=== PATIENT | female | born 1960 | race Asian ===

== ENCOUNTER → 2018-06-08 06:59 | Outpatient (CLI) | payer OTHER, SELFPAY ==
[2018-06-08 08:20] LABS: Add Manual Diff / Slide Review NO; Basophils Percent Auto 0.6 % (0-2); Eosinophils Percent Auto 2.4 % (2-4); Hematocrit 43.4 % (36-46); Hemoglobin 14.8 g/dL (12.0-16.0); Lymphocytes Percent Auto 27.6 % (25-40); Mean Corpuscular HGB Conc 34.1 % (30-36); Mean Corpuscular Hemoglobin 30.7 PG (26-34); Mean Corpuscular Volume 89.9 fL (80-100); Monocytes Percent Auto 7.8 % (3-14); Neutrophils Absolute Auto 3600 /uL (3000-5900); Neutrophils Percent Auto 61.6 % (50-75); Platelet Count 251 X10^3/uL (150-400); Red Blood Cell Count 4.83 X10^6/uL (4.0-5.2); Red Cell Distribution Width 13.3 % (11.6-14.8); White Blood Cell Count 5.8 X10^3/uL (4.5-11.0)
[2018-06-08 08:53] LABS: Alanine Aminotransferase 25 IU/L (9-52); Albumin 4.5 g/dL (3.5-5.0); Albumin Globulin Ratio 1.3 (1.0-2.8); Alkaline Phosphatase 59 U/L (38-126); Aspartate Aminotransferase 26 IU/L (14-36); Bilirubin Total 0.6 mg/dL (0.2-1.3); Blood Urea Nitrogen 24 mg/dL (7-17); Carbon Dioxide 26 mmol/L (22-32); Chloride 104 mmol/L (98-107); Cholesterol 293 mg/dL (140-199); Estimated Glomerular Filt Rate > 60.0 mL/min (>60); Globulin 3.4 g/dL (1.7-4.1); Glucose 146 mg/dL (70-100); HDL Cholesterol 39 mg/dL (40-60); LDL Cholesterol Calculated 186 mg/dL (<100); Sodium 141 mmol/L (137-145); Total Protein 7.9 g/dL (6.3-8.2); Triglycerides 340 mg/dL (35-150)
[2018-06-08 09:22] LABS: TSH w/ Reflex to FT4 2.65 uIU/mL (0.47-4.68)
[2018-06-08 09:26] LABS: HEMOLYSIS 68 (0-50)
[2018-06-08 09:29] LABS: Potassium 4.5 mmol/L (3.4-5.1)
== END ==
DX: Z00.00 Encounter for general adult medical examination without abnormal findings (principal); Z13.220 Encounter for screening for lipoid disorders; Z13.1 Encounter for screening for diabetes mellitus; E03.9 Hypothyroidism, unspecified
CPT/HCPCS: 36415; 80053; 80061; 83036; 84443; 85025

== ENCOUNTER 2018-06-29 11:15 | Inpatient (IN) | payer OTHER, SELFPAY ==
[2018-06-29] VITALS (16 sets, daily range): BP systolic 90–166; BP diastolic 36–111; PULSE 90–108; RESP 12–20; TEMP 35.9–37.4; O2SAT 91–99; BMI 29.7; BMI 32.4
--- NOTE | 2018-06-29 | PATH_ITS ---
[facility] Accession Number: [id number] . 01 Material submitted: . APPENDIX . 02 Diagnosis: Appendix, Appendectomy: Acute appendicitis with perforation and serositis. No evidence of dysplasia or malignancy. [facility]/07/03/2018 . 02 Electronically signed: . Constance Vásquez MD, Pathologist NPI- [id number] . 01 Gross description: . Received in formalin, labeled appendix, is an opened appendix (length-2.7 cm, diameter-0.8 cm) with miller-gallego smooth and shiny serosa and attached mesoappendix (up to 1.1 cm in depth). The resection margin is received stapled. The lumen contains red-brown solid soft material. No nodules, masses or lesions are identified. The resection margin is inked black. Section code: (A1) resection margin en face and three additional quality audit representative serial sections; (A2) one-half of the bivalved tip. ([id number]) /[facility] . 02 Pathologist provided ICD-10: K35.20 . 02 CPT . 787997 Performed at: [facility] [address] [id number] MD Randall Middleton MD Phone: [phone] Performed at: [facility] [address] [place], [place] [id number] MD Constance Vásquez MD Phone: [phone]
--- NOTE | 2018-06-29 11:44 | ED_ITS ---
HPI - Abdominal Pain <AYESHA Johnson - Last Filed: 06/29/18 20:59> General Chief Complaint: Abdominal Pain Stated Complaint: stomach ache Time Seen by Provider: 06/29/18 11:43 Source: patient Mode of arrival: ambulatory Limitations: no limitations History of Present Illness HPI narrative: 58-year-old female with history of hypothyroidism and is a nonsmoker here for complaint of abdominal pain and nausea vomiting that started yesterday. She states that the pain started yesterday in the epigastric area and then throughout the night moved into the lower abdomen. Pain is greater on right than the left. She denies any urinary symptoms. No fevers no chills. She does report decreased appetite today. Last p.o. intake was yesterday. Last bowel movement was yesterday and she states that it was normal. She denies any diarrhea. She denies any flank pain. Related Data Previous Rx's Medication Instructions Recorded thyroid (pork) [[place] Thyroid] 60 mg PO QDAY@0600 #30 07/17/12 Allergies Allergy/AdvReac Type Severity Reaction Status Date / Time No Known Drug Allergies Allergy Verified 06/29/18 12:44 Review of Systems <AYESHA Johnson - Last Filed: 06/29/18 20:59> Constitutional Denies chills, Denies fever(s), Denies lethargy and Denies weakness Eyes Denies change in vision, Denies eye discharge, Denies irritation and Denies loss of vision ENT Ears, Nose, Mouth, and Throat: Denies change in voice, Denies neck pain and Denies sore throat Cardiovascular Denies chest pain, Denies irregular heart rhythm, Denies lightheadedness, Denies palpitations, Denies dyspnea, Denies dyspnea on exertion and Denies orthopnea Respiratory Denies cough, Denies dyspnea, Denies dyspnea on exertion and Denies wheezing Gastrointestinal Gastrointestinal: Reports abdominal pain Genitourinary Denies hematuria, Denies flank pain, Denies urinary incontinence and Denies urinary urgency Musculoskeletal Denies neck pain Integumentary/Breasts Denies pruritus, Denies erythema, Denies rash and Denies wounds Neurologic Denies confusion, Denies loss of vision and Denies weakness Psychiatric Denies anxiety, Denies confusion, Denies depression, Denies homicidal ideation and Denies suicidal ideation Endocrine Denies palpitations Hematologic/Lymphatic Denies easy bruising Allergic/Immunologic Denies wheezing Exam <AYESHA Johnson - Last Filed: 06/29/18 20:59> Initial Vital Signs Initial Vital Signs: Vital Signs Pulse Rate 95 H 06/29/18 11:45 Respiratory Rate 16 06/29/18 11:45 Blood Pressure 159/80 H 06/29/18 11:45 Pulse Oximetry 97 06/29/18 11:45 Const General: cooperative and well developed Nutritional Appearance: well nourished Orientation: alert, awake, oriented x3 and not confused [facility] Mouth: oral mucosae normal and moist mucous membranes Throat: posterior oropharynx normal Eyes Conjunctivae: conjunctivae normal Sclera: sclerae normal Pupils: PERRL EOM: EOM intact bilaterally Resp Effort & Inspection: normal respiratory effort, able to speak in complete sentences, no respiratory distress and no use of accessory muscles Auscultation: clear to auscultation bilaterally, no rales, no rhonchi and no wheezes Cardio Rate: regular rate Rhythm: regular rhythm Heart Sounds: no click, no gallops, no murmurs and no rubs GI Inspection: non-distended Palpation: soft, no hepatosplenomegaly, No guarding, No pulsatile mass and tender (Tenderness to bilateral lower abdomen right greater than left. Positive rebound tenderness) Auscultation: normal bowel sounds General: No CVA tenderness Skin General: no rashes or lesions noted, No jaundice and No petechiae Neuro General: alert, oriented x3, gait normal and no focal motor deficits Speech: speech normal <Ophelia Dawson MD - Last Filed: 06/29/18 15:10> Initial Vital Signs Initial Vital Signs: Vital Signs Pulse Rate 95 H 06/29/18 11:45 Respiratory Rate 16 06/29/18 11:45 Blood Pressure 159/80 H 06/29/18 11:45 Pulse Oximetry 97 06/29/18 11:45 <Khadijah Sorto DO - Last Filed: 06/30/18 19:26> Initial Vital Signs Initial Vital Signs: Vital Signs Pulse Rate 95 H 06/29/18 11:45 Respiratory Rate 16 06/29/18 11:45 Blood Pressure 159/80 H 06/29/18 11:45 Pulse Oximetry 97 06/29/18 11:45 Course <AYESHA Johnson - Last Filed: 06/29/18 20:59> Orders Ordered: Acetaminophen (Tylenol) 975 mg PO Q6HR PRN PRN Reason: p Last Admin: 06/30/18 11:06 Dose: 975 mg Docusate Sodium (Colace) 100 mg PO BID PRN PRN Reason: Constipation Last Admin: 06/30/18 09:10 Dose: 100 mg Enoxaparin Sodium (Lovenox) 40 mg SUBCUT DAILY [facility] Hydromorphone HCl (Dilaudid) 1 mg IV Q3HR PRN PRN Reason: Pain, Moderate (4-6) Dextrose/Sodium Chloride (Dextrose 5%-0.45% Ns) 1,000 mls @ 100 mls/hr IV CONT [facility] Last Admin: 06/30/18 10:41 Dose: 100 mls/hr Infusion: 06/30/18 09:55 Dose: 100 mls/hr Infusion: 06/30/18 04:14 Dose: 100 mls/hr Admin: 06/30/18 04:13 Dose: 100 mls/hr Infusion: 06/30/18 03:55 Dose: 100 mls/hr Admin: 06/29/18 17:55 Dose: 100 mls/hr Piperacillin/Tazobactam/Dextrose (Zosyn) 3.375 gm in 50 mls @ 100 mls/hr IV Q6H [facility] Last Infusion: 06/30/18 16:45 Dose: 100 mls/hr Admin: 06/30/18 16:14 Dose: 100 mls/hr Infusion: 06/30/18 11:48 Dose: 100 mls/hr Admin: 06/30/18 11:06 Dose: 100 mls/hr Metronidazole (Flagyl) 500 mg in 100 mls @ 100 mls/hr IV Q6H [facility] Last Infusion: 06/30/18 18:15 Dose: 100 mls/hr Admin: 06/30/18 17:13 Dose: 100 mls/hr Infusion: 06/30/18 12:55 Dose: 100 mls/hr Admin: 06/30/18 11:48 Dose: 100 mls/hr Ketorolac Tromethamine (Toradol) 30 mg IV Q6HR [facility] Stop: 07/04/18 17:08 Last Admin: 06/30/18 18:41 Dose: 30 mg Admin: 12/21/18 11:45 Dose: 30 mg Admin: 06/30/18 05:18 Dose: 30 mg Admin: 06/29/18 23:41 Dose: 30 mg Admin: 06/29/18 18:28 Dose: 30 mg Ondansetron HCl (Zofran) 4 mg IV Q6HR PRN PRN Reason: Nausea And Vomiting Last Admin: 06/29/18 20:20 Dose: 4 mg Pantoprazole Sodium (Protonix) 40 mg IV DAILY [facility] Last Admin: 06/30/18 09:10 Dose: 40 mg Sodium Chloride (Normal Saline 0.9% Flush) 10 ml IV PRN PRN PRN Reason: Flush Thyroid ([place] Thyroid) 60 mg PO 0600 [facility] Last Admin: 06/30/18 05:19 Dose: 60 mg Discontinued Medications Bupivacaine HCl (Sensorcaine 0.5% (Pf)) 20 ml INJ NOW ONE Stop: 06/29/18 15:59 Last Admin: 06/29/18 16:02 Dose: 20 ml Cefazolin Sodium (Ancef Vial) 2 gm IV NOW ONE Stop: 06/29/18 15:59 Last Admin: 06/29/18 16:01 Dose: 2 gm Fentanyl (Sublimaze) 50 mcg IV Q5MIN PRN PRN Reason: Pain, Moderate (4-6) Hydromorphone HCl (Dilaudid) 0.5 mg IV NOW ONE Stop: 06/29/18 14:04 Last Admin: 06/29/18 14:05 Dose: 0.5 mg Hydromorphone HCl (Dilaudid) 0.25 mg IV Q5MIN PRN PRN Reason: Pain, Mild (1-3) Hydromorphone HCl (Dilaudid) 1 mg IV Q4HR PRN PRN Reason: Pain, Moderate (4-6) Last Admin: 06/30/18 07:52 Dose: 0.5 mg Sodium Chloride (Normal Saline 0.9%) 1,000 mls @ 1,000 mls/hr IV BOLUS ONE Stop: 06/29/18 12:59 Last Infusion: 06/29/18 14:29 Dose: 0 mls/hr Admin: 06/29/18 12:45 Dose: 1,000 mls/hr Lactated Ringer's (Lactated Ringers) 1,000 mls @ 42 mls/hr IV CONT [facility] Last Infusion: 06/29/18 17:23 Dose: 0 mls/hr Admin: 06/29/18 15:15 Dose: 42 mls/hr Lactated Ringer's (Lactated Ringers) 500 mls @ 1,000 mls/hr IV BOLUS ONE Stop: 06/30/18 09:50 Last Infusion: 06/30/18 10:37 Dose: 1,000 mls/hr Admin: 06/30/18 09:56 Dose: 1,000 mls/hr Lidocaine/Epinephrine (Xylocaine 1% W/Epi) 20 ml INJ NOW ONE Stop: 06/29/18 15:59 Last Admin: 06/29/18 16:03 Dose: 20 ml Metoclopramide HCl (Reglan) 10 mg IV NOW PRN PRN Reason: Nausea And Vomiting Ondansetron HCl (Zofran) 4 mg IV NOW ONE Stop: 06/29/18 12:01 Last Admin: 06/29/18 12:45 Dose: 4 mg Ondansetron HCl (Zofran) 4 mg IV NOW ONE Stop: 06/29/18 14:04 Last Admin: 06/29/18 14:05 Dose: 4 mg Ondansetron HCl (Zofran) 4 mg IV NOW PRN PRN Reason: Nausea And Vomiting Vital Signs - 8 hr 06/30/18 16:23 06/30/18 19:06 Temperature 98.7 F 98.8 F Pulse Rate 85 94 H Respiratory Rate 18 16 Blood Pressure 131/73 131/73 Pulse Oximetry 96 95 <Ophelia Dawson MD - Last Filed: 06/29/18 15:10> Orders Ordered: Acetaminophen (Tylenol) 975 mg PO Q6HR PRN PRN Reason: p Last Admin: 06/30/18 11:06 Dose: 975 mg Docusate Sodium (Colace) 100 mg PO BID PRN PRN Reason: Constipation Last Admin: 06/30/18 09:10 Dose: 100 mg Enoxaparin Sodium (Lovenox) 40 mg SUBCUT DAILY [facility] Hydromorphone HCl (Dilaudid) 1 mg IV Q3HR PRN PRN Reason: Pain, Moderate (4-6) Dextrose/Sodium Chloride (Dextrose 5%-0.45% Ns) 1,000 mls @ 100 mls/hr IV CONT [facility] Last Admin: 06/30/18 10:41 Dose: 100 mls/hr Infusion: 06/30/18 09:55 Dose: 100 mls/hr Infusion: 06/30/18 04:14 Dose: 100 mls/hr Admin: 06/30/18 04:13 Dose: 100 mls/hr Infusion: 06/30/18 03:55 Dose: 100 mls/hr Admin: 06/29/18 17:55 Dose: 100 mls/hr Piperacillin/Tazobactam/Dextrose (Zosyn) 3.375 gm in 50 mls @ 100 mls/hr IV Q6H [facility] Last Infusion: 06/30/18 16:45 Dose: 100 mls/hr Admin: 06/30/18 16:14 Dose: 100 mls/hr Infusion: 06/30/18 11:48 Dose: 100 mls/hr Admin: 06/30/18 11:06 Dose: 100 mls/hr Metronidazole (Flagyl) 500 mg in 100 mls @ 100 mls/hr IV Q6H [facility] Last Infusion: 06/30/18 18:15 Dose: 100 mls/hr Admin: 06/30/18 17:13 Dose: 100 mls/hr Infusion: 06/30/18 12:55 Dose: 100 mls/hr Admin: 06/30/18 11:48 Dose: 100 mls/hr Ketorolac Tromethamine (Toradol) 30 mg IV Q6HR [facility] Stop: 07/04/18 17:08 Last Admin: 06/30/18 18:41 Dose: 30 mg Admin: 06/30/18 11:45 Dose: 30 mg Admin: 06/30/18 05:18 Dose: 30 mg Admin: 06/29/18 23:41 Dose: 30 mg Admin: 06/29/18 18:28 Dose: 30 mg Ondansetron HCl (Zofran) 4 mg IV Q6HR PRN PRN Reason: Nausea And Vomiting Last Admin: 06/29/18 20:20 Dose: 4 mg Pantoprazole Sodium (Protonix) 40 mg IV DAILY [facility] Last Admin: 06/30/18 09:10 Dose: 40 mg Sodium Chloride (Normal Saline 0.9% Flush) 10 ml IV PRN PRN PRN Reason: Flush Thyroid ([place] Thyroid) 60 mg PO 0600 [facility] Last Admin: 06/30/18 05:19 Dose: 60 mg Discontinued Medications Bupivacaine HCl (Sensorcaine 0.5% (Pf)) 20 ml INJ NOW ONE Stop: 06/29/18 15:59 Last Admin: 06/29/18 16:02 Dose: 20 ml Cefazolin Sodium (Ancef Vial) 2 gm IV NOW ONE Stop: 06/29/18 15:59 Last Admin: 06/29/18 16:01 Dose: 2 gm Fentanyl (Sublimaze) 50 mcg IV Q5MIN PRN PRN Reason: Pain, Moderate (4-6) Hydromorphone HCl (Dilaudid) 0.5 mg IV NOW ONE Stop: 06/29/18 14:04 Last Admin: 06/29/18 14:05 Dose: 0.5 mg Hydromorphone HCl (Dilaudid) 0.25 mg IV Q5MIN PRN PRN Reason: Pain, Mild (1-3) Hydromorphone HCl (Dilaudid) 1 mg IV Q4HR PRN PRN Reason: Pain, Moderate (4-6) Last Admin: 06/30/18 07:52 Dose: 0.5 mg Sodium Chloride (Normal Saline 0.9%) 1,000 mls @ 1,000 mls/hr IV BOLUS ONE Stop: 06/29/18 12:59 Last Infusion: 06/29/18 14:29 Dose: 0 mls/hr Admin: 06/29/18 12:45 Dose: 1,000 mls/hr Lactated Ringer's (Lactated Ringers) 1,000 mls @ 42 mls/hr IV CONT [facility] Last Infusion: 06/29/18 17:23 Dose: 0 mls/hr Admin: 06/29/18 15:15 Dose: 42 mls/hr Lactated Ringer's (Lactated Ringers) 500 mls @ 1,000 mls/hr IV BOLUS ONE Stop: 06/30/18 09:50 Last Infusion: 06/30/18 10:37 Dose: 1,000 mls/hr Admin: 06/30/18 09:56 Dose: 1,000 mls/hr Lidocaine/Epinephrine (Xylocaine 1% W/Epi) 20 ml INJ NOW ONE Stop: 06/29/18 15:59 Last Admin: 06/29/18 16:03 Dose: 20 ml Metoclopramide HCl (Reglan) 10 mg IV NOW PRN PRN Reason: Nausea And Vomiting Ondansetron HCl (Zofran) 4 mg IV NOW ONE Stop: 06/29/18 12:01 Last Admin: 06/29/18 12:45 Dose: 4 mg Ondansetron HCl (Zofran) 4 mg IV NOW ONE Stop: 06/29/18 14:04 Last Admin: 06/29/18 14:05 Dose: 4 mg Ondansetron HCl (Zofran) 4 mg IV NOW PRN PRN Reason: Nausea And Vomiting Vital Signs - 8 hr 06/30/18 16:23 06/30/18 19:06 Temperature 98.7 F 98.8 F Pulse Rate 85 94 H Respiratory Rate 18 16 Blood Pressure 131/73 131/73 Pulse Oximetry 96 95 <Khadijah Sorto DO - Last Filed: 06/30/18 19:26> Orders Ordered: Acetaminophen (Tylenol) 975 mg PO Q6HR PRN PRN Reason: p Last Admin: 06/30/18 11:06 Dose: 975 mg Docusate Sodium (Colace) 100 mg PO BID PRN PRN Reason: Constipation Last Admin: 06/30/18 09:10 Dose: 100 mg Enoxaparin Sodium (Lovenox) 40 mg SUBCUT DAILY [facility] Hydromorphone HCl (Dilaudid) 1 mg IV Q3HR PRN PRN Reason: Pain, Moderate (4-6) Dextrose/Sodium Chloride (Dextrose 5%-0.45% Ns) 1,000 mls @ 100 mls/hr IV CONT [facility] Last Admin: 06/30/18 10:41 Dose: 100 mls/hr Infusion: 06/30/18 09:55 Dose: 100 mls/hr Infusion: 06/30/18 04:14 Dose: 100 mls/hr Admin: 06/30/18 04:13 Dose: 100 mls/hr Infusion: 06/30/18 03:55 Dose: 100 mls/hr Admin: 06/29/18 17:55 Dose: 100 mls/hr Piperacillin/Tazobactam/Dextrose (Zosyn) 3.375 gm in 50 mls @ 100 mls/hr IV Q6H [facility] Last Infusion: 06/30/18 16:45 Dose: 100 mls/hr Admin: 06/30/18 16:14 Dose: 100 mls/hr Infusion: 06/30/18 11:48 Dose: 100 mls/hr Admin: 06/30/18 11:06 Dose: 100 mls/hr Metronidazole (Flagyl) 500 mg in 100 mls @ 100 mls/hr IV Q6H [facility] Last Infusion: 06/30/18 18:15 Dose: 100 mls/hr Admin: 06/30/18 17:13 Dose: 100 mls/hr Infusion: 06/30/18 12:55 Dose: 100 mls/hr Admin: 06/30/18 11:48 Dose: 100 mls/hr Ketorolac Tromethamine (Toradol) 30 mg IV Q6HR [facility] Stop: 07/04/18 17:08 Last Admin: 06/30/18 18:41 Dose: 30 mg Admin: 06/30/18 11:45 Dose: 30 mg Admin: 06/30/18 05:18 Dose: 30 mg Admin: 06/29/18 23:41 Dose: 30 mg Admin: 06/29/18 18:28 Dose: 30 mg Ondansetron HCl (Zofran) 4 mg IV Q6HR PRN PRN Reason: Nausea And Vomiting Last Admin: 06/29/18 20:20 Dose: 4 mg Pantoprazole Sodium (Protonix) 40 mg IV DAILY [facility] Last Admin: 06/30/18 09:10 Dose: 40 mg Sodium Chloride (Normal Saline 0.9% Flush) 10 ml IV PRN PRN PRN Reason: Flush Thyroid ([place] Thyroid) 60 mg PO 0600 [facility] Last Admin: 06/30/18 05:19 Dose: 60 mg Discontinued Medications Bupivacaine HCl (Sensorcaine 0.5% (Pf)) 20 ml INJ NOW ONE Stop: 06/29/18 15:59 Last Admin: 06/29/18 16:02 Dose: 20 ml Cefazolin Sodium (Ancef Vial) 2 gm IV NOW ONE Stop: 06/29/18 15:59 Last Admin: 06/29/18 16:01 Dose: 2 gm Fentanyl (Sublimaze) 50 mcg IV Q5MIN PRN PRN Reason: Pain, Moderate (4-6) Hydromorphone HCl (Dilaudid) 0.5 mg IV NOW ONE Stop: 06/29/18 14:04 Last Admin: 06/29/18 14:05 Dose: 0.5 mg Hydromorphone HCl (Dilaudid) 0.25 mg IV Q5MIN PRN PRN Reason: Pain, Mild (1-3) Hydromorphone HCl (Dilaudid) 1 mg IV Q4HR PRN PRN Reason: Pain, Moderate (4-6) Last Admin: 06/30/18 07:52 Dose: 0.5 mg Sodium Chloride (Normal Saline 0.9%) 1,000 mls @ 1,000 mls/hr IV BOLUS ONE Stop: 06/29/18 12:59 Last Infusion: 06/29/18 14:29 Dose: 0 mls/hr Admin: 06/29/18 12:45 Dose: 1,000 mls/hr Lactated Ringer's (Lactated Ringers) 1,000 mls @ 42 mls/hr IV CONT [facility] Last Infusion: 06/29/18 17:23 Dose: 0 mls/hr Admin: 06/29/18 15:15 Dose: 42 mls/hr Lactated Ringer's (Lactated Ringers) 500 mls @ 1,000 mls/hr IV BOLUS ONE Stop: 06/30/18 09:50 Last Infusion: 06/30/18 10:37 Dose: 1,000 mls/hr Admin: 06/30/18 09:56 Dose: 1,000 mls/hr Lidocaine/Epinephrine (Xylocaine 1% W/Epi) 20 ml INJ NOW ONE Stop: 06/29/18 15:59 Last Admin: 06/29/18 16:03 Dose: 20 ml Metoclopramide HCl (Reglan) 10 mg IV NOW PRN PRN Reason: Nausea And Vomiting Ondansetron HCl (Zofran) 4 mg IV NOW ONE Stop: 06/29/18 12:01 Last Admin: 06/29/18 12:45 Dose: 4 mg Ondansetron HCl (Zofran) 4 mg IV NOW ONE Stop: 06/29/18 14:04 Last Admin: 06/29/18 14:05 Dose: 4 mg Ondansetron HCl (Zofran) 4 mg IV NOW PRN PRN Reason: Nausea And Vomiting Vital Signs - 8 hr 06/30/18 16:23 06/30/18 19:06 Temperature 98.7 F 98.8 F Pulse Rate 85 94 H Respiratory Rate 18 16 Blood Pressure 131/73 131/73 Pulse Oximetry 96 95 MDM - Abdominal Pain <AYESHA Johnson - Last Filed: 06/29/18 20:59> Lab Data Result diagrams: 06/29/18 12:30 06/29/18 12:30 Lab Results 06/29/18 06/29/18 06/29/18 Range/Units 12:30 12:30 14:38 WBC 12.6 H (4.5-11.0) X10^3/uL RBC 4.74 (4.0-5.2) X10^6/uL Hgb 14.3 (12.0-16.0) g/dL Hct 42.8 (36-46) % MCV 90.2 (80-100) fL MCH 30.1 (26-34) PG MCHC 33.4 (30-36) % RDW 13.6 (11.6-14.8) % Plt Count 232 (150-400) X10^3/uL Neut % (Auto) 87.0 H (50-75) % Lymph % (Auto) 3.7 L (25-40) % [place] % (Auto) 8.9 (3-14) % Eos % (Auto) 0.1 L (2-4) % Baso % (Auto) 0.3 (0-2) % Neut # (Auto) 99829 H (8288-4472) /uL Sodium 141 (137-145) mmol/L Potassium 4.0 (3.4-5.1) mmol/L Chloride 100 (98-107) mmol/L Carbon Dioxide 27 (22-32) mmol/L BUN 19 H (7-17) mg/dL Creatinine 0.60 (0.52-1.04) mg/dL Estimated GFR > 60.0 (>60) mL/min BUN/Creatinine Ratio 31.7 H (6-22) Glucose 197 H (70-100) mg/dL Calcium 9.1 (8.4-10.2) mg/dL Total Bilirubin 1.1 (0.2-1.3) mg/dL AST 17 (14-36) IU/L ALT 23 (9-52) IU/L Alkaline Phosphatase 66 (38-126) U/L Total Protein 7.7 (6.3-8.2) g/dL Albumin 4.4 (3.5-5.0) g/dL Globulin 3.3 (1.7-4.1) g/dL Albumin/Globulin Ratio 1.3 (1.0-2.8) Lipase 39 (23-300) U/L Blood Type O Positive Antibody Screen Negative Point of care testing: Point of Care Testing Test Results Not applicable Glucose POC 169 Urine Dip Bedside Urine Glucose Negative Bedside Urine Bilirubin - Negative Bedside Urine Ketone - Negative Urine Specific [place] 1.015 Bedside Urine Occult Blood - Negative Bedside Urine pH 6.0 Bedside Urine Protein - Negative Bedside Urine Urobilinogen - Negative Bedside Urine Nitrite - Negative Bedside Urine Leukocytes - Negative Esterase Imaging Data CT scan - abdomen: Radiologist's impression: [address] [address] [address] Scan Report Signed Patient: Saritha Morgan MR#: [id number] : 1960 Acct:[id number] Age/Sex: 58 / F Date of Service: 06/29/18 Loc: ED Accession Number: [id number] Procedure: CT abdomen pelvis w con Ordering Provider: Nikolas Flower PROCEDURE: CT ABDOMEN PELVIS W CON INDICATIONS: Bilateral lower abdominal pain right greater than left l TECHNIQUE: After the administration of oral and intravenous contrast, 5 mm thick sections acquired from the diaphragms to the symphysis. 5 mm thick coronal and sagittal reformats were performed. For radiation dose reduction, the following was used: automated exposure control, adjustment of mA and/or kV according to patient size. COMPARISON: None. FINDINGS: Image quality: Excellent. ABDOMEN: Lung bases: Lung bases are clear. Heart size is mildly enlarged. Solid organs: Hepatic steatosis. Gallbladder negative. Biliary system is non- dilated. Pancreas enhances normally. Spleen is normal in size and enhancement. No adrenal nodules. Kidneys are normal in size and enhancement, without hydronephrosis. Peritoneum and bowel: The appendix is enlarged measuring 11 mm in diameter. There is mural enhancement and surrounding periappendiceal fat stranding and inflammation. No abscess seen. No appendicolith identified. The rectum is decompressed. No evidence of bowel obstruction. No free air or free fluid. Nodes and vessels: No retroperitoneal or mesenteric adenopathy. Aorta and inferior vena cava are normal in caliber. Miscellaneous: No ventral hernias. PELVIS: Genitourinary: Bladder wall thickness is normal. Miscellaneous: No inguinal hernias or adenopathy. Bones: No suspicious bony lesions. Chronic L5 pars defects. No vertebral body compression fractures. IMPRESSION: Acute appendicitis. No appendicolith or abscess seen Findings immediately personally telephoned to Nikolas HODGE in the emergency department 1414 hours on 06/29/18. Dictated by: Mac Yap M.D. on 06/29/2018 at 14:09 Approved by: Mac Yap M.D. on 06/29/2018 at 14:16 MDM Narrative Medical decision making narrative: CBC was obtained and shows elevated white count of 12.6. Chem panel shows elevated blood sugar of [address] of the abdomen shows signs concerning for acute appendicitis no free fluid or air. Urinalysis was negative for urinary tract infection. Discussed case with Dr. Samir de la vega will take patient to surgery. Patient admitted Hospital via OR <Ophelia Dawson MD - Last Filed: 06/29/18 15:10> Lab Data Lab Results 06/29/18 06/29/18 06/29/18 Range/Units 12:30 12:30 14:38 WBC 12.6 H (4.5-11.0) X10^3/uL RBC 4.74 (4.0-5.2) X10^6/uL Hgb 14.3 (12.0-16.0) g/dL Hct 42.8 (36-46) % MCV 90.2 (80-100) fL MCH 30.1 (26-34) PG MCHC 33.4 (30-36) % RDW 13.6 (11.6-14.8) % Plt Count 232 (150-400) X10^3/uL Neut % (Auto) 87.0 H (50-75) % Lymph % (Auto) 3.7 L (25-40) % [place] % (Auto) 8.9 (3-14) % Eos % (Auto) 0.1 L (2-4) % Baso % (Auto) 0.3 (0-2) % Neut # (Auto) 14193 H (5744-7893) /uL Sodium 141 (137-145) mmol/L Potassium 4.0 (3.4-5.1) mmol/L Chloride 100 (98-107) mmol/L Carbon Dioxide 27 (22-32) mmol/L BUN 19 H (7-17) mg/dL Creatinine 0.60 (0.52-1.04) mg/dL Estimated GFR > 60.0 (>60) mL/min BUN/Creatinine Ratio 31.7 H (6-22) Glucose 197 H (70-100) mg/dL Calcium 9.1 (8.4-10.2) mg/dL Total Bilirubin 1.1 (0.2-1.3) mg/dL AST 17 (14-36) IU/L ALT 23 (9-52) IU/L Alkaline Phosphatase 66 (38-126) U/L Total Protein 7.7 (6.3-8.2) g/dL Albumin 4.4 (3.5-5.0) g/dL Globulin 3.3 (1.7-4.1) g/dL Albumin/Globulin Ratio 1.3 (1.0-2.8) Lipase 39 (23-300) U/L Blood Type O Positive Antibody Screen Negative Point of care testing: Point of Care Testing Test Results Not applicable Glucose POC 169 Urine Dip Bedside Urine Glucose Negative Bedside Urine Bilirubin - Negative Bedside Urine Ketone - Negative Urine Specific [place] 1.015 Bedside Urine Occult Blood - Negative Bedside Urine pH 6.0 Bedside Urine Protein - Negative Bedside Urine Urobilinogen - Negative Bedside Urine Nitrite - Negative Bedside Urine Leukocytes - Negative Esterase <Khadijah Sorto, DO - Last Filed: 06/30/18 19:26> Lab Data Lab Results 06/29/18 06/29/18 06/29/18 Range/Units 12:30 12:30 14:38 WBC 12.6 H (4.5-11.0) X10^3/uL RBC 4.74 (4.0-5.2) X10^6/uL Hgb 14.3 (12.0-16.0) g/dL Hct 42.8 (36-46) % MCV 90.2 (80-100) fL MCH 30.1 (26-34) PG MCHC 33.4 (30-36) % RDW 13.6 (11.6-14.8) % Plt Count 232 (150-400) X10^3/uL Neut % (Auto) 87.0 H (50-75) % Lymph % (Auto) 3.7 L (25-40) % [place] % (Auto) 8.9 (3-14) % Eos % (Auto) 0.1 L (2-4) % Baso % (Auto) 0.3 (0-2) % Neut # (Auto) 00941 H (0261-0212) /uL Sodium 141 (137-145) mmol/L Potassium 4.0 (3.4-5.1) mmol/L Chloride 100 (98-107) mmol/L Carbon Dioxide 27 (22-32) mmol/L BUN 19 H (7-17) mg/dL Creatinine 0.60 (0.52-1.04) mg/dL Estimated GFR > 60.0 (>60) mL/min BUN/Creatinine Ratio 31.7 H (6-22) Glucose 197 H (70-100) mg/dL Calcium 9.1 (8.4-10.2) mg/dL Total Bilirubin 1.1 (0.2-1.3) mg/dL AST 17 (14-36) IU/L ALT 23 (9-52) IU/L Alkaline Phosphatase 66 (38-126) U/L Total Protein 7.7 (6.3-8.2) g/dL Albumin 4.4 (3.5-5.0) g/dL Globulin 3.3 (1.7-4.1) g/dL Albumin/Globulin Ratio 1.3 (1.0-2.8) Lipase 39 (23-300) U/L Blood Type O Positive Antibody Screen Negative Point of care testing: Point of Care Testing Test Results Not applicable Glucose POC 169 Urine Dip Bedside Urine Glucose Negative Bedside Urine Bilirubin - Negative Bedside Urine Ketone - Negative Urine Specific [place] 1.015 Bedside Urine Occult Blood - Negative Bedside Urine pH 6.0 Bedside Urine Protein - Negative Bedside Urine Urobilinogen - Negative Bedside Urine Nitrite - Negative Bedside Urine Leukocytes - Negative Esterase Discharge Plan Departure Patient Disposition: Admitted As Inpatient Clinical Impression: Acute appendicitis Discharge Date/Time: 06/29/18 14:33 Interventions: ED Discharge Assessment Last Done: 06/29/18 14:33 Admit Date/Time: 06/29/18 14:29 Admit Provider: Ophelia Dawson <Khadijah Sorto DO - Last Filed: 06/30/18 19:26> Cosign ED Attending Cosignature Attestation: I was immediately available in the department for consultation. This documentation has been reviewed and I agree with assessment and plan. Supervised by Khadijah Sorto,
--- NOTE | 2018-06-29 12:01 | DI.CT.S_ITS ---
PROCEDURE: CT ABDOMEN PELVIS W CON INDICATIONS: Bilateral lower abdominal pain right greater than left l TECHNIQUE: After the administration of oral and intravenous contrast, 5 mm thick sections acquired from the diaphragms to the symphysis. 5 mm thick coronal and sagittal reformats were performed. For radiation dose reduction, the following was used: automated exposure control, adjustment of mA and/or kV according to patient size. COMPARISON: None. FINDINGS: Image quality: Excellent. ABDOMEN: Lung bases: Lung bases are clear. Heart size is mildly enlarged. Solid organs: Hepatic steatosis. Gallbladder negative. Biliary system is non-dilated. Pancreas enhances normally. Spleen is normal in size and enhancement. No adrenal nodules. Kidneys are normal in size and enhancement, without hydronephrosis. Peritoneum and bowel: The appendix is enlarged measuring 11 mm in diameter. There is mural enhancement and surrounding periappendiceal fat stranding and inflammation. No abscess seen. No appendicolith identified. The rectum is decompressed. No evidence of bowel obstruction. No free air or free fluid. Nodes and vessels: No retroperitoneal or mesenteric adenopathy. Aorta and inferior vena cava are normal in caliber. Miscellaneous: No ventral hernias. PELVIS: Genitourinary: Bladder wall thickness is normal. Miscellaneous: No inguinal hernias or adenopathy. Bones: No suspicious bony lesions. Chronic L5 pars defects. No vertebral body compression fractures. IMPRESSION: Acute appendicitis. No appendicolith or abscess seen Findings immediately personally telephoned to Nikolas HODGE in the emergency department 1414 hours on 06/29/18. Dictated by: Mac Yap M.D. on 06/29/2018 at 14:09 Approved by: Mac Yap M.D. on 06/29/2018 at 14:16
[2018-06-29] MEDS: SODIUM CHLORIDE 0.9% 1,000 ML 1000 ML IV (12:45)
[2018-06-29] MEDS: ONDANSETRON 4 MG/2 ML INJ IV ×3 (12:45→20:20)
[2018-06-29 12:51] LABS: Add Manual Diff / Slide Review NO; Basophils Percent Auto 0.3 % (0-2); Eosinophils Percent Auto 0.1 % (2-4); Hematocrit 42.8 % (36-46); Hemoglobin 14.3 g/dL (12.0-16.0); Lymphocytes Percent Auto 3.7 % (25-40); Mean Corpuscular HGB Conc 33.4 % (30-36); Mean Corpuscular Hemoglobin 30.1 PG (26-34); Mean Corpuscular Volume 90.2 fL (80-100); Monocytes Percent Auto 8.9 % (3-14); Neutrophils Absolute Auto 11000 /uL (1500-7000); Platelet Count 232 X10^3/uL (150-400); Red Blood Cell Count 4.74 X10^6/uL (4.0-5.2); Red Cell Distribution Width 13.6 % (11.6-14.8); White Blood Cell Count 12.6 X10^3/uL (4.5-11.0)
--- NOTE | 2018-06-29 12:54 | PC.NURSE ---
deferred pain medication at this time, antinausea given for comfort.
[2018-06-29 13:06] LABS: Alanine Aminotransferase 23 IU/L (9-52); Albumin 4.4 g/dL (3.5-5.0); Albumin Globulin Ratio 1.3 (1.0-2.8); Alkaline Phosphatase 66 U/L (38-126); Aspartate Aminotransferase 17 IU/L (14-36); BUN Creatinine Ratio 31.7 (6-22); Bilirubin Total 1.1 mg/dL (0.2-1.3); Blood Urea Nitrogen 19 mg/dL (7-17); Calcium 9.1 mg/dL (8.4-10.2); Carbon Dioxide 27 mmol/L (22-32); Chloride 100 mmol/L (98-107); Estimated Glomerular Filt Rate > 60.0 mL/min (>60); Globulin 3.3 g/dL (1.7-4.1); Glucose 197 mg/dL (70-100); HEMOLYSIS < 15 (0-50); Lipase 39 U/L (23-300); Sodium 141 mmol/L (137-145); Total Protein 7.7 g/dL (6.3-8.2)
[2018-06-29] MEDS: HYDROMORPHONE 1 MG INJ 0.5 MG IV (14:05)
--- NOTE | 2018-06-29 15:10 | PM.HP.1 ---
History of Present Illness Date Patient Seen: 06/29/18 Time Patient Seen: 15:10 Chief complaint: stomach ache Narrative: Saritha is a very pleasant and generally healthy 58-year-old lady who presented to the emergency room with abdominal pain that started yesterday afternoon. She reports that began in the epigastrium and has since localized to the right lower quadrant. She was seen and evaluated in the emergency room by AYESHA Johnson and found to have acute appendicitis confirmed on CT scan. I have been consulted for definitive management. She denies any other constitutional symptoms. She denies any blood in her stool or unexplained weight loss. She reports that other than this, she is in her usual state of health. Patient History Family & Social History Family History: Reviewed 06/29/18 by Ophelia Dawson MD Social History: household members spouse Prior Living Arrangements House Safety & Behavioral: Feels Safe in Current Yes Environment Been Physically Hurt or No Threatened By a Person Tobacco & Substance use: Smoking Status Never smoker Substance Use Type does not use Meds Home Medications Medication Instructions Recorded Confirmed Type thyroid (pork) [Ben[place]ia Thyroid] 60 mg PO QDAY@0600 #30 07/17/12 Rx Allergies Allergy/AdvReac Type Severity Reaction Status Date / Time No Known Drug Allergies Allergy Verified 06/29/18 12:44 Review of Systems Review of Systems All systems reviewed & are unremarkable except as noted in HPI and below Exam Vital Signs (past 8 hours): - 06/29/18 11:45 06/29/18 12:46 06/29/18 13:55 Temperature Pulse Rate 95 H 90 99 H Respiratory Rate 16 16 16 Blood Pressure 159/80 H Blood Pressure [Left Arm] 166/86 H 143/111 H Pulse Oximetry 97 94 98 06/29/18 14:40 Temperature 97.8 F Pulse Rate 92 H Respiratory Rate 15 Blood Pressure 154/86 H Blood Pressure [Left Arm] Pulse Oximetry 95 Oxygen Delivery Method Room Air Narrative Exam Narrative: Very pleasant, well-nourished, and well-developed lady in no obvious distress HEENT: Normocephalic and atraumatic, pupils equal round reactive to light accommodation with anicteric sclera Lungs: Clear to auscultation bilaterally Heart: Regular rate and rhythm without murmur rub or gallop Abdomen: Soft, tender to palpation in the right upper and lower quadrants. Some tenderness to palpation in suprapubic region. Voluntary guarding. No true rebound. Hypoactive bowel tones. Extremities: Warm and well perfused and without edema. Objective Labs Result Diagrams: 06/29/18 12:30 06/29/18 12:30 Labs: Laboratory Results - last 24 hr 06/29/18 06/29/18 12:30 12:30 WBC 12.6 H RBC 4.74 Hgb 14.3 Hct 42.8 MCV 90.2 MCH 30.1 MCHC 33.4 RDW 13.6 Plt Count 232 Neut % (Auto) 87.0 H Lymph % (Auto) 3.7 L [place] % (Auto) 8.9 Eos % (Auto) 0.1 L Baso % (Auto) 0.3 Neut # (Auto) 74370 H Sodium 141 Potassium 4.0 Chloride 100 Carbon Dioxide 27 BUN 19 H Creatinine 0.60 Estimated GFR > 60.0 BUN/Creatinine Ratio 31.7 H Glucose 197 H Calcium 9.1 Total Bilirubin 1.1 AST 17 ALT 23 Alkaline Phosphatase 66 Total Protein 7.7 Albumin 4.4 Globulin 3.3 Albumin/Globulin Ratio 1.[address] [place] [address] CT Scan Report Signed Patient: Saritha Morgan MR#: [id number] : 1960 Acct:[id number] Age/Sex: 58 / F Date of Service: 06/29/18 Loc: ED Accession Number: [id number] Procedure: CT abdomen pelvis w con Ordering Provider: Nikolas Flower PROCEDURE: CT ABDOMEN PELVIS W CON INDICATIONS: Bilateral lower abdominal pain right greater than left l TECHNIQUE: After the administration of oral and intravenous contrast, 5 mm thick sections acquired from the diaphragms to the symphysis. 5 mm thick coronal and sagittal reformats were performed. For radiation dose reduction, the following was used: automated exposure control, adjustment of mA and/or kV according to patient size. COMPARISON: None. FINDINGS: Image quality: Excellent. ABDOMEN: Lung bases: Lung bases are clear. Heart size is mildly enlarged. Solid organs: Hepatic steatosis. Gallbladder negative. Biliary system is non-dilated. Pancreas enhances normally. Spleen is normal in size and enhancement. No adrenal nodules. Kidneys are normal in size and enhancement, without hydronephrosis. Peritoneum and bowel: The appendix is enlarged measuring 11 mm in diameter. There is mural enhancement and surrounding periappendiceal fat stranding and inflammation. No abscess seen. No appendicolith identified. The rectum is decompressed. No evidence of bowel obstruction. No free air or free fluid. Nodes and vessels: No retroperitoneal or mesenteric adenopathy. Aorta and inferior vena cava are normal in caliber. Miscellaneous: No ventral hernias. PELVIS: Genitourinary: Bladder wall thickness is normal. Miscellaneous: No inguinal hernias or adenopathy. Bones: No suspicious bony lesions. Chronic L5 pars defects. No vertebral body compression fractures. IMPRESSION: Acute appendicitis. No appendicolith or abscess seen Findings immediately personally telephoned to Nikolas HODGE in the emergency department 1414 hours on 06/29/18. Assessment & Plan Plan: Assessment/Plan Narrative: Very pleasant and healthy lady with acute appendicitis. We discussed the risks and benefits of laparoscopy with appendectomy the patient expressed a desire to complete the procedure today.
[2018-06-29] MEDS: LACTATED RINGERS 1,000 ML 42 ML IV (15:15)
--- NOTE | 2018-06-29 15:39 | SUR.OPER ---
Supine on padded OR bed, head on pillow, left arm padded and tucked at side, right arm on padded arm board at 90 degrees, legs uncrossed, safety belt at thigh, tape over blanket over lower legs .
[2018-06-29] MEDS: CEFAZOLIN 1 GM VIAL 2 GM IV (16:01)
[2018-06-29] MEDS: BUPIVACAINE 0.5% (PF) VIAL 20 ML INJ (16:02)
[2018-06-29] MEDS: LIDOCAINE 1% W/EPI INJ 20 ML INJ (16:03)
--- NOTE | 2018-06-29 16:36 | PM.OP.1 ---
Operative Date/Time/Diagnoses Date of procedure: 06/29/18 Time of procedure: 16:36 Pre-op diagnosis: Acute appendicitis Post-op diagnosis: same Procedure & Clinicians Procedure: Laparoscopy with appendectomy Same procedure as scheduled: Yes Indications: Acute appendicitis on physical exam and demonstrated on CT Surgeon: Ophelia Dawson Click Yes if Unassisted: Yes Anesthesia Type: General (Dr. Jacobson) Operative Notes Findings: Hemorrhagic appendicitis with perforation and hematoma. Firm a masslike hemorrhagic structure at the tip of the appendix Closure Type: primary Implants & Drains: Nineteen Citizen Of [place] Tony drain in the right pericolic gutter Estimated Blood Loss (mL): 10 Procedure in detail: After obtaining informed consent, the patient was brought to the operating room and placed in the supine position on the operating table. Following successful induction of general endotracheal anesthesia, appropriate padding of all little prominences, and placement of appropriate monitors, the abdomen was prepped and draped in the standard surgical fashion. A timeout was held per SCOAP protocol. Following infiltration with local anesthetic to create a field block, an incision was created inferior to the umbilicus and carried down through the skin and subcutaneous tissue to reveal the fascia below. 2-0 Vicryl retention sutures were placed on either side of midline and the abdomen was entered under direct vision using an 11 blade scalpel. A 12 mm blunt-tipped Leon trocar was placed in the abdominal cavity and it was insufflated to 15 mmHg pressure. The patient was placed in Trendelenburg position with the left side rotated toward the floor. Under direct vision, a second 5 mm trocar was placed in the right upper quadrant and a third 5 mm trocar was placed midway between the umbilicus and the pubis. The camera was placed in the abdominal cavity and we immediately visualized the appendix in the retro-cecal position. It was notably hemorrhagic with a large bulbous hemorrhagic mass at the tip. The base was perforated and from the cecum. The perforated portions were grasped and removed. The base of the appendix still attached to the cecum was only approximately a 0.5 cm long. This was grasped and a 45 mm stapler passed along the base of the cecum to seal it and liberate this portion. This was removed by the umbilical port. The operative site was irrigated copiously with warm saline solution. The wounds were checked for hemostasis. The operative site was visualized and irrigated with warm saline solution. The abdomen was aspirated free of all fluid and particulate matter. A 19 Citizen [place] Tony drain was placed in the right pericolic gutter and brought out through the right upper quadrant port site. This was sewn into place. The abdomen was desufflated and the trocars removed under direct vision. The umbilical incision was closed with Vicryl suture and Monocryl was placed in the skin. All sponge, needle, and instrument counts were correct at conclusion of the case. Patient was allowed to wake from anesthesia without difficulty and taken to the postanesthesia care unit in good condition. Complications: none Condition: stable Disposition: PACU Plan for aftercare: 1. Admit to acute care 2. Continue antibiotics and supportive measures
[2018-06-29] MEDS: DEXTROSE 5%-0.45% NS 1,000 ML 100 ML IV (17:55)
--- NOTE | 2018-06-29 18:16 | PC.NURSE ---
POST-OP Received pt at approximately 1730 via gurney from PACU. drowsy but easily wakens to verbal stimuli. Ox4, pleasant and cooperative. R abdominal surgical dressing CDI, JANUSZ drain intact with serosanguinous drainage. umbillicus and lower abdomen with lap site and skin glue. bowel sounds hypoactive, pt denies any N/V, or flatus. c/o 4/10 pain to R abdomen area, states pain is tolerable. ice pack applied. oriented to room. call light within reach.
[2018-06-29] MEDS: KETOROLAC 30 MG/ML VIAL IV ×2 (18:28→23:41)
[2018-06-30] VITALS (7 sets, daily range): BP systolic 131–155; BP diastolic 44–88; PULSE 85–107; RESP 16–20; TEMP 36.7–37.4; O2SAT 88–97
--- NOTE | 2018-06-30 03:24 | PC.NURSE ---
Denies nausea now, ate her Jello. C/O abdominal incision pain, but declined Dilaudid IVP. Ice pack applied, informed Toradol IV is not due until 2912-4285. Pt. states I'll wait, will cont. POC & monitor.
[2018-06-30] MEDS: DEXTROSE 5%-0.45% NS 1,000 ML 100 ML IV ×2 (04:13→10:41)
[2018-06-30] MEDS: KETOROLAC 30 MG/ML VIAL IV ×4 (05:18→23:53)
[2018-06-30] MEDS: THYROID, PORK 60 MG TABLET PO (05:19)
--- NOTE | 2018-06-30 06:04 | PC.NURSE ---
Dr. Dawson called in her # [phone] to notify Pt. Temp.99.4, HR. 107 this morning. Also pt. is asking for some Tylenol for pain, noted no Anti-biotic ordered post-op. Called Dr. Dawson x2, last call message left in her voice mail. Awaiting call back, will monitor & report to day RN.
[2018-06-30] MEDS: HYDROMORPHONE 1 MG INJ IV ×2 (07:52→23:04)
--- NOTE | 2018-06-30 08:18 | PC.NURSE ---
Addendum entered by Maddy Gallardo R.N. 06/30/18 12:29: MS/PAIN - pain managed with earlier toradol and tylenol, standby assist from chair, ambul hallway w/spouse at side, gait steady. Original Note: Addendum entered by Maddy Gallardo R.N. 06/30/18 08:59: PAIN - pt much more comfortable after the earlier dilaudid dose, states abd discomfort 1-2 on scale 0/10. Original Note: AM NOTE - pt is alert, appears moderately uncomfortable, states did not sleep well, abd discomfort 6 on scale 0/10, states earlier toradol provided some relief but does not last, has been reluctant to have the iv dilaudid due concerns nausea, no nausea now, abd soft, some cramping like discomfort and feels bloated no flatus yet, bt are present, bonded inc w/o drainage, some surrounding bruising, standby assist up to chair, positioned comfort, declines ice, after discussion, given 0.5mg iv dilaudid, bs clear, ra 96%.
[2018-06-30] MEDS: PANTOPRAZOLE 40 MG VIAL IV (09:10)
[2018-06-30] MEDS: DOCUSATE 100 MG CAPSULE PO (09:10)
[2018-06-30] MEDS: LACTATED RINGERS 500 ML 1000 ML IV (09:56)
[2018-06-30] MEDS: ACETAMINOPHEN 325 MG TABLET 975 MG PO (11:06)
[2018-06-30] MEDS: PIPERACILLIN-TAZO 3.375 GM/50 ML FROZ.PIGGY IV ×3 (11:06→22:00)
[2018-06-30] MEDS: metroNIDAZOLE 500 MG/100 ML PIGGYBACK 100 MG IV ×3 (11:48→22:59)
[2018-07-01] VITALS (8 sets, daily range): BP systolic 140–155; BP diastolic 76–89; PULSE 83–95; RESP 16–24; TEMP 36.7–37.8; O2SAT 95–98
[2018-07-01] MEDS: DEXTROSE 5%-0.45% NS 1,000 ML 100 ML IV (01:44)
[2018-07-01] MEDS: PIPERACILLIN-TAZO 3.375 GM/50 ML FROZ.PIGGY IV ×4 (04:07→22:15)
[2018-07-01] MEDS: ACETAMINOPHEN 325 MG TABLET 975 MG PO ×2 (04:09→23:51)
[2018-07-01] MEDS: metroNIDAZOLE 500 MG/100 ML PIGGYBACK 100 MG IV ×4 (05:14→22:57)
[2018-07-01] MEDS: KETOROLAC 30 MG/ML VIAL IV ×4 (06:23→23:50)
[2018-07-01] MEDS: THYROID, PORK 60 MG TABLET PO (06:27)
[2018-07-01] MEDS: ENOXAPARIN 40 MG/0.4 ML SYRINGE SUBCUT (10:04)
[2018-07-01] MEDS: PANTOPRAZOLE 40 MG VIAL IV (10:04)
[2018-07-01] MEDS: ONDANSETRON 4 MG/2 ML INJ IV ×2 (13:36→22:15)
--- NOTE | 2018-07-01 13:44 | CM.DANOTE ---
DCP/Assessment: Reviewed chart. Patient is a 58yr old female admitted to [facility] with abdominal pain. Primary payor is 1[employer]. PCP is in [place]. Met with patient and spouse/Live at bedside explained CM/SW role. Patient reports that she is completely I in all ADL's and does not anticipate any d/c planning needs. Patient underwent appendectomy on 06-29-[address] Dawson. No identified d/c planning needs. Anticipate home when medically stable. P: Home VICKIE Roland Discharge Planning/Care Management CM Discharge Assessment Start: 07/01/18 13:41 Freq: Status: Active Protocol: Document 07/01/18 13:41 KJS (Rec: 07/01/18 13:43 [id number]) Discharge Planning Assessment Assigned Butter Wrapper VICKIE Roland Advance Directives? Yes Advance Directives on File Yes History Provided By Patient Family Member Prior Living Arrangements House Household Members spouse Type of transporation used prior to Drives own vehicle admit Independent with ADL's Yes Is patient alert and oriented? Yes Caregiver for Another No Barriers to Discharge No Discharge Plan Home Transportation Arrangement Family to provide transport at time of d/c. Referrals Initiated None needed Whiteboard Updated in Patient Room with Yes name and ext. # of Butter Wrapper Review Status In Process Please Provide Date Initial DC 07/01/18 Assessment Was Performed Next Review Type Continued Stay Review
--- NOTE | 2018-07-01 13:44 | PM.PNPO.1 ---
Subjective Date Patient Seen: 07/01/18 Time Patient Seen: 13:44 Interval history: Patient is a woman who had an appendectomy. It was reported to me that it was perforated and that may contain the tumor. There was lot of bloody fluid in the abdomen. A drain was left. She is feeling better. Still has some pain especially with deep breathing. Her abdominal symptoms have improved however. Exam Vital Signs (past 8 hours): - 07/01/18 08:25 07/01/18 13:17 Temperature 98.7 F 98.7 F Pulse Rate 85 89 Respiratory Rate 16 24 Blood Pressure 140/78 155/87 H Pulse Oximetry 95 97 Oxygen Delivery Method Room Air Oxygen Flow Rate 0 Narrative Exam Narrative: The apparent distress. Lungs are clear anteriorly and laterally with decreased in the bases. Her breathing cuts off when she tries to take a deep breath. Her heart regular rate and rhythm without murmur gallop. Her abdomen is flat soft. The incisions are intact. The drainage is serous. Objective Labs Result Diagrams: 06/29/18 12:30 06/29/18 12:30 Assessment & Plan Post-op Postoperative Procedures Operation Date: 06/29/18 14:30 Actual Procedures Side Surgeon p Laparoscopic Appendectomy Ophelia Dawson MD Postoperative day: 2 Postoperative status: doing well Postoperative plan narrative: Advance diet. Verge deep breathing and walking. Possible discharge in the morning if her labs are okay and she looks clinically better. Quality VTE Deep Vein Thrombosis/Pulmonary Embolism Present on Admission: No
[2018-07-01] MEDS: DOCUSATE 100 MG CAPSULE PO (16:54)
[2018-07-01] MEDS: SODIUM CHLORIDE 0.9% FLUSH 10 ML IV ×2 (19:41→22:15)
--- NOTE | 2018-07-01 21:25 | PC.NURSE ---
SHIFT NOTE A&Ox4, pleasant and cooperative with care. tmax 99 degrees. pt walking in hallways and doing IS exercises independently. abdominal dressing with old, dry SS drainage but otherwise CDI. JANUSZ drain intact. denies any nausea this shift, able to tolerate full liquid diet. c/o sore throat and intermittent gassy pains but denies need for PRN medications. call light within reach.
[2018-07-01] MEDS: SODIUM CHLORIDE 0.9% 250 ML 21 ML IV (22:15)
[2018-07-02 02:35] VITALS: TEMP 37.3
[2018-07-02 03:48] VITALS: BP 153/97; PULSE 78; RESP 16; TEMP 36.7; O2SAT 97
[2018-07-02] MEDS: PIPERACILLIN-TAZO 3.375 GM/50 ML FROZ.PIGGY IV ×3 (03:50→16:06)
[2018-07-02] MEDS: metroNIDAZOLE 500 MG/100 ML PIGGYBACK 100 MG IV ×3 (04:42→16:56)
[2018-07-02] MEDS: THYROID, PORK 60 MG TABLET PO (06:01)
[2018-07-02] MEDS: SODIUM CHLORIDE 0.9% FLUSH 10 ML IV ×2 (06:02→16:12)
[2018-07-02 06:29] LABS: Add Manual Diff / Slide Review NO; Basophils Percent Auto 0.5 % (0-2); Eosinophils Percent Auto 2.7 % (2-4); Hematocrit 37.5 % (36-46); Hemoglobin 12.5 g/dL (12.0-16.0); Lymphocytes Percent Auto 16.3 % (25-40); Mean Corpuscular HGB Conc 33.4 % (30-36); Mean Corpuscular Volume 89.7 fL (80-100); Monocytes Percent Auto 10.2 % (3-14); Neutrophils Absolute Auto 5300 /uL (1500-7000); Neutrophils Percent Auto 70.3 % (50-75); Platelet Count 245 X10^3/uL (150-400); Red Blood Cell Count 4.18 X10^6/uL (4.0-5.2); Red Cell Distribution Width 13.1 % (11.6-14.8); White Blood Cell Count 7.6 X10^3/uL (4.5-11.0)
--- NOTE | 2018-07-02 06:33 | PC.NURSE ---
Slept most of the night. Denies any nausea & abdominal pain, refused her Toradol this morning. Ambulated in the hallway & hoping to go home today. Will cont. POC & monitor.
[2018-07-02 07:40] VITALS: BP 149/87; PULSE 84; RESP 16; TEMP 36.9; O2SAT 97
[2018-07-02] MEDS: PANTOPRAZOLE 40 MG VIAL IV (09:29)
[2018-07-02] MEDS: DOCUSATE 100 MG CAPSULE PO (09:31)
[2018-07-02] MEDS: ENOXAPARIN 40 MG/0.4 ML SYRINGE SUBCUT (09:53)
[2018-07-02] MEDS: BISACODYL 10 MG SUPP PR (10:39)
--- NOTE | 2018-07-02 10:46 | PC.NURSE ---
Addendum entered by Maddy Gallardo R.N. 07/02/18 13:04: GI/PAIN/INTEG - dulcolax suppos admin and pt later had small loose stool, at lunch started reg diet and experiencing sore throat due to abraison on uvila post op, discussed softer foods until healed, declined her toradol but agreed to tylenol, dsg janusz site removed w/old dried serosang, small qty thin serosang in bulb, explained care of JANUSZ to pt and spouse, assisted into shower. Original Note: AM NOTE - up to chair before breakfast, denies abd discomfort and declines tylenol this am, + flatus, no stool yet, bt active, abd soft w/surrounding bruising, janusz compressed with scant thin serosang drainage, given stool softener, no nausea and francia full liq, ra 97%, hr 84, later in and pt returned to bed, pt positioned l side and dulcolax suppos admin, call light and bsc available, req pt call staff for oob.
[2018-07-02 13:40] VITALS: BP 149/73; PULSE 83; RESP 18; TEMP 37.3; O2SAT 97
[2018-07-02 15:50] VITALS: BP 154/86; PULSE 66; RESP 18; TEMP 36.6; O2SAT 98
[2018-07-02] MEDS: ONDANSETRON 4 MG/2 ML INJ IV (16:12)
--- NOTE | 2018-07-02 17:38 | PM.DS.1 ---
History of Present Illness Date Patient Seen: 07/02/18 Time Patient Seen: 17:29 Chief complaint: stomach ache Narrative: The patient is with woman who was admitted with signs and symptoms acute appendicitis. Discharge Providers Date of admission: 06/29/18 14:29 Discharge provider: Shiraz Stanton MD Discharge Date: 07/02/18 Summary Discharge Diagnosis: Acute perforated appendicitis. Pathology report is pending. There may be additional diagnosis. Hypothyroidism Hospital Course: The patient underwent a laparoscopic appendectomy. She was found to have a hemorrhagic process within already perforated appendix. There was concern that there could be tumor involvement. Pathology report is pending. Her postoperative course was actually fairly typical of a perforated appendicitis. White count gradually came down to normal. She gradually tolerated the diet. She was discharged to follow up in the office. A drain was in place at the time of discharge. As per the primary surgeons instructions. She was discharged on Levaquin, Flagyl for the next 5 additional days. She is to call for an appointment to be seen this week to have her drain removed. She was instructed how to care for the drain. She may shower. Exam Vital Signs (past 8 hours): - 07/02/18 13:40 07/02/18 15:50 Temperature 99.2 F 97.9 F Pulse Rate 83 66 Respiratory Rate 18 18 Blood Pressure 149/73 H 154/86 H Pulse Oximetry 97 98 Oxygen Delivery Method Room Air Oxygen Flow Rate 0 Const General: cooperative, healthy appearing and comfortable Orientation: alert Other: Abdomen is scaphoid soft no unusual tenderness. No cellulitis of the wounds. Her lungs are clear to auscultation. Heart regular rate and rhythm without murmur gallop. Objective Labs Result Diagrams: 07/02/18 06:17 06/29/18 12:30 Labs: Laboratory Results - last 24 hr 07/02/18 06:17 WBC 7.6 RBC 4.18 Hgb 12.5 Hct 37.5 MCV 89.7 MCH 30.0 MCHC 33.4 RDW 13.1 Plt Count 245 Neut % (Auto) 70.3 Lymph % (Auto) 16.3 L [place] % (Auto) 10.2 Eos % (Auto) 2.7 Baso % (Auto) 0.5 Neut # (Auto) 5300 Discharge Plan Discharge Plan Patient Disposition: Home Discharge comment: You had a perforated appendicitis. You should call our office on Tuesday to get an appointment to see Dr. Dawson. Tell them that you have a drain in place. Our office #[phone]. Empty and record her drainage output 2 or 3 times a day. Bring that record with you to your office visit. Discharge Med Rec/Prescriptions Prescriptions: New ondansetron 8 mg tablet,disintegrating 8 mg PO BID-TID PRN (Reason: nausea and vomiting) Qty: 14 RF: 0 metronidazole [Flagyl] 500 mg tablet 500 mg PO TID Qty: 14 RF: 0 levofloxacin 500 mg tablet 500 mg PO DAILY Qty: 5 RF: 0 Continue thyroid (pork) [[place] Thyroid] 60 MG tablet 60 mg PO QDAY@0600 Qty: 30 RF: 0 Follow up/Referrals: Provider,Conversion [Non-Staff] - Ophelia Dawson MD [Physician] - (Call the office on Tuesday and get an appointment to see Dr. Dawson later that week. Tell the office you have a drain) Provider Discharge Instructions Diet: Diet as Tolerated Activity: Do not drive until pain free off medication. Avoid pool or hot tub for at least 2 weeks. Do not lift over 10 lb or straining for at least 4 weeks. You may walk. Skin/Wound/Dressing Care Report to your healthcare provider any signs of infection, such as:: chills, fever, night sweats, increased pain, unusual drainage and unusual redness Visit Report/Discharge Packet Instructions: DI for [place] Drains, How to Use and Care for Your [place] Drain, Appendectomy -- Laparoscopic Surgery, Ondansetron, Metronidazole Oral, Levofloxacin Visit Report Forms: Stroke Signs & Symptoms Discharge Data Attending Provider: Ophelia Dawson Admit Date/Time: 06/29/18 14:29 Quality VTE Deep Vein Thrombosis/Pulmonary Embolism Present on Admission: No
--- NOTE | 2018-07-02 17:42 | P.DS_ITS ---
History of Present Illness Date Patient Seen: 07/02/18 Time Patient Seen: 17:29 Chief complaint: stomach ache Narrative: The patient is with woman who was admitted with signs and symptoms acute appendicitis. Discharge Providers Date of admission: 06/29/18 14:29 Discharge provider: Shiraz Stanton MD Discharge Date: 07/02/18 Summary Discharge Diagnosis: Acute perforated appendicitis. Pathology report is pending. There may be additional diagnosis. Hypothyroidism Hospital Course: The patient underwent a laparoscopic appendectomy. She was found to have a hemorrhagic process within already perforated appendix. There was concern that there could be tumor involvement. Pathology report is pending. Her postoperative course was actually fairly typical of a perforated appendicitis. White count gradually came down to normal. She gradually tolerated the diet. She was discharged to follow up in the office. A drain was in place at the time of discharge. As per the primary surgeons instructions. She was discharged on Levaquin, Flagyl for the next 5 additional days. She is to call for an appointment to be seen this week to have her drain removed. She was instructed how to care for the drain. She may shower. Exam Vital Signs (past 8 hours): - 07/02/18 13:40 07/02/18 15:50 Temperature 99.2 F 97.9 F Pulse Rate 83 66 Respiratory Rate 18 18 Blood Pressure 149/73 H 154/86 H Pulse Oximetry 97 98 Oxygen Delivery Method Room Air Oxygen Flow Rate 0 Const General: cooperative, healthy appearing and comfortable Orientation: alert Other: Abdomen is scaphoid soft no unusual tenderness. No cellulitis of the wounds. Her lungs are clear to auscultation. Heart regular rate and rhythm without murmur gallop. Objective Labs Result Diagrams: 07/02/18 06:17 06/29/18 12:30 Labs: Laboratory Results - last 24 hr 07/02/18 06:17 WBC 7.6 RBC 4.18 Hgb 12.5 Hct 37.5 MCV 89.7 MCH 30.0 MCHC 33.4 RDW 13.1 Plt Count 245 Neut % (Auto) 70.3 Lymph % (Auto) 16.3 L Victoria % (Auto) 10.2 Eos % (Auto) 2.7 Baso % (Auto) 0.5 Neut # (Auto) 5300 Discharge Plan Discharge Plan Patient Disposition: Home Discharge comment: You had a perforated appendicitis. You should call our office on Tuesday to get an appointment to see Dr. Dawson. Tell them that you have a drain in place. Our office #[phone]. Empty and record her drainage output 2 or 3 times a day. Bring that record with you to your office visit. Discharge Med Rec/Prescriptions Prescriptions: New ondansetron 8 mg tablet,disintegrating 8 mg PO BID-TID PRN (Reason: nausea and vomiting) Qty: 14 RF: 0 metronidazole [Flagyl] 500 mg tablet 500 mg PO TID Qty: 14 RF: 0 levofloxacin 500 mg tablet 500 mg PO DAILY Qty: 5 RF: 0 Continue thyroid (pork) [[place] Thyroid] 60 MG tablet 60 mg PO QDAY@0600 Qty: 30 RF: 0 Follow up/Referrals: Provider,Conversion [Non-Staff] - Ophelia Dawson MD [Physician] - (Call the office on Tuesday and get an appointment to see Dr. Dawson later that week. Tell the office you have a drain) Provider Discharge Instructions Diet: Diet as Tolerated Activity: Do not drive until pain free off medication. Avoid pool or hot tub for at least 2 weeks. Do not lift over 10 lb or straining for at least 4 weeks. You may walk. Skin/Wound/Dressing Care Report to your healthcare provider any signs of infection, such as:: chills, fever, night sweats, increased pain, unusual drainage and unusual redness Visit Report/Discharge Packet Instructions: DI for Wallace-Corona Drains, How to Use and Care for Your Wallace -Corona Drain, Appendectomy -- Laparoscopic Surgery, Ondansetron, Metronidazole Oral, Levofloxacin Visit Report Forms: Stroke Signs & Symptoms Discharge Data Attending Provider: Ophelia Dawson Admit Date/Time: 06/29/18 14:29 Quality VTE Deep Vein Thrombosis/Pulmonary Embolism Present on Admission: No
--- NOTE | 2018-07-02 18:18 | PC.NURSE ---
DISCHARGE Ox4, pleasant and cooperative with care. independent with ADLs. pt continues to walk in hallways and do IS exercises independently. abdominal dressing CDI, JANUSZ intact. per previous shift RN, education/teaching of JANUSZ care was done with pt's . pt's also given dressing supplies by day shift RN. c/o slight nausea which pt attributes to antibiotics. denies pain. d/c instructions reviewed with pt by mary RN. pt off unit at approximately 1815 with RN escort.
== END 2018-07-02 18:15 | disposition home or self-care (01) | DRG 340 ==
LOC: ED 14:24 → AC 14:30
PROVIDERS: Specialist; Admitting Provider Surgery; Emergency Provider Nurse Practitioner Family; Visit Provider Surgery
PROC: 0DTJ4ZZ Resection of Appendix, Percutaneous Endoscopic Approach (ICD-10-PCS; CPT 44970; principal; 2018-06-29 14:30)
DX: K35.32 Acute appendicitis with perforation, localized peritonitis, and gangrene, without abscess (principal)
CPT/HCPCS: 36415; 36591; 44970; 74177; 80053; 81003; 83690; 85025; 86850; 86900; 86901; 94760; 96361; 96374; 96375; 96376; 99222; 99283; 99285; C9113; J0360; J0690; J1170; J1650; J1885; J2250; J2405; J2543; J2704; J3010

== ENCOUNTER → 2018-07-26 08:26 | Outpatient (CLI) | payer OTHER, SELFPAY ==
[2018-07-10 11:56] VITALS: BMI 32.4
--- NOTE | 2018-07-26 | DI.MG.S_ITS ---
BILATERAL DIGITAL SCREENING MAMMOGRAM 3D/2D WITH CAD: 07/26/2018 CLINICAL: Routine screening. Comparison is made to exams dated: 06/30/2017 mammogram - [facility], 08/13/2015 mammogram, 02/14/2015 mammogram, 04/01/2016 mammogram, 02/14/2015 stereotactic biopsy - [facility] in [place], and 11/21/2014 mammogram - [facility]. There are scattered fibroglandular elements in both breasts. Current study was also evaluated with a Computer Aided Detection (CAD) system. There is a benign biopsy clip in the left breast. No significant masses, calcifications, or other findings are seen in either breast. There has been no significant interval change. IMPRESSION: NEGATIVE There is no mammographic evidence of malignancy. A 1 year screening mammogram is recommended. This exam was interpreted at Station ID: [id number]. NOTE: For mammograms, a report in lay terms will be sent to the patient. Approximately 15% of breast malignancies will not be visualized mammographically. In the management of a palpable breast mass, a negative mammogram must not discourage biopsy of a clinically suspicious lesion. Electronically Signed By: Gilson lopez/jen:07/26/2018 10:58:58 letter sent: Normal Exam ACR BI-RADS Category 1: Negative 3341F
== END ==
PROVIDERS: Visit Provider Chiropractor Sports Physician
DX: Z12.31 Encounter for screening mammogram for malignant neoplasm of breast (principal)
CPT/HCPCS: 77063; 77067

== ENCOUNTER → 2018-09-11 07:03 | Outpatient (CLI) | payer OTHER, SELFPAY ==
[2018-07-10 11:56] VITALS: BMI 32.4
[2018-09-11 08:44] LABS: Thyroid Stimulating Hormone 2.03 uIU/mL (0.47-4.68)
== END ==
PROVIDERS: Visit Provider Naturopath
DX: E03.9 Hypothyroidism, unspecified (principal)
CPT/HCPCS: 36415; 84443

== ENCOUNTER → 2019-05-04 07:07 | Outpatient (CLI) | payer OTHER, SELFPAY ==
[2018-07-10 11:56] VITALS: BMI 32.4
[2019-05-04 08:22] LABS: Hemoglobin A1C% w Est Avg Glu 8.8 % (4.0-6.0)
[2019-05-04 08:32] LABS: Alanine Aminotransferase 21 IU/L (9-52); Albumin 4.6 g/dL (3.5-5.0); Albumin Globulin Ratio 1.4 (1.0-2.8); Alkaline Phosphatase 72 U/L (38-126); Aspartate Aminotransferase 31 IU/L (14-36); BUN Creatinine Ratio 41.7 (6-22); Bilirubin Total 0.7 mg/dL (0.2-1.3); Blood Urea Nitrogen 25 mg/dL (7-17); Calcium 9.3 mg/dL (8.4-10.2); Carbon Dioxide 26 mmol/L (22-32); Chloride 104 mmol/L (98-107); Cholesterol 222 mg/dL (140-199); Estimated Glomerular Filt Rate > 60.0 mL/min (>60); Globulin 3.2 g/dL (1.7-4.1); Glucose 161 mg/dL (70-100); HDL Cholesterol 33 mg/dL (40-60); HEMOLYSIS 35 (0-50); LDL Cholesterol Calculated 119 mg/dL (<100); Potassium 4.4 mmol/L (3.4-5.1); Sodium 140 mmol/L (137-145); Total Protein 7.8 g/dL (6.3-8.2); Triglycerides 349 mg/dL (35-150)
[2019-05-04 08:36] LABS: High Sensitivity CRP - Cardiac 1.4 mg/L (1.0-3.0)
[2019-05-04 09:26] LABS: TSH w/ Reflex to FT4 2.11 uIU/mL (0.47-4.68)
== END ==
PROVIDERS: PCP Naturopath; Visit Provider Naturopath
DX: Z00.00 Encounter for general adult medical examination without abnormal findings (principal); E78.2 Mixed hyperlipidemia; E11.9 Type 2 diabetes mellitus without complications; E03.9 Hypothyroidism, unspecified
CPT/HCPCS: 36415; 80053; 80061; 83036; 84443; 86140

== ENCOUNTER → 2019-09-10 07:54 | Outpatient (CLI) | payer OTHER, SELFPAY ==
[2018-07-10 11:56] VITALS: BMI 32.4
--- NOTE | 2019-09-10 | DI.MG.S_ITS ---
BILATERAL DIGITAL SCREENING MAMMOGRAM 3D/2D WITH CAD: 09/10/2019 CLINICAL: Routine screening. Comparison is made to exams dated: 07/26/2018 mammogram, 06/30/2017 mammogram - [facility], 04/01/2016 mammogram, 02/14/2015 mammogram, and 08/13/2015 mammogram - [facility] in [place]. There are scattered fibroglandular elements in both breasts. Current study was also evaluated with a Computer Aided Detection (CAD) system. There is a biopsy clip in the left breast. The adjacent calcifications in the left breast are unchanged. No significant masses, calcifications, or other findings are seen in either breast. There has been no significant interval change. IMPRESSION: There is no mammographic evidence of malignancy. A 1 year screening mammogram is recommended. This exam was interpreted at Station ID: [id number]. NOTE: For mammograms, a report in lay terms will be sent to the patient. Approximately 15% of breast malignancies will not be visualized mammographically. In the management of a palpable breast mass, a negative mammogram must not discourage biopsy of a clinically suspicious lesion. Electronically Signed By: Anders Rodriguez M.D. slc/:09/10/2019 08:29:09 letter sent: Normal Exam ACR BI-RADS Category 2: Benign Finding(s) 3342F
== END ==
PROVIDERS: PCP Naturopath
DX: Z12.31 Encounter for screening mammogram for malignant neoplasm of breast (principal)
CPT/HCPCS: 77063; 77067

== ENCOUNTER 2020-02-18 10:02 | Observation (INO) | payer OTHER, SELFPAY ==
[2018-07-10 11:56] VITALS: BMI 32.4
[2020-02-18] VITALS (26 sets, daily range): BP systolic 91–166; BP diastolic 60–85; PULSE 71–156; RESP 9–24; TEMP 36.4–36.6; O2SAT 94–100; BMI 30.1
--- NOTE | 2020-02-18 10:09 | DI.RAD.S_ITS ---
PROCEDURE: XR CHEST 1V INDICATIONS: Dyspnea TECHNIQUE: One view of the chest was acquired. COMPARISON: [facility], , CHEST 1 VIEW, 06/04/2013, 15:21. FINDINGS: Surgical changes and devices: None. Lungs and pleura: On this semiupright portable chest examination, no large pneumothorax or large pleural effusions are seen. No focal infiltrates are seen. Mediastinum: Mediastinal contours appear normal. Heart size is normal. Bones and chest wall: No suspicious bony lesions. Age-appropriate bony degenerative changes are seen. Mild dextroconvex scoliotic curvature is seen. Overlying soft tissues appear unremarkable. IMPRESSION: Portable chest within normal limits. Dictated by: Louie Berman M.D. on 02/18/2020 at 9:41 Approved by: Louie Berman M.D. on 02/18/2020 at 9:41
--- NOTE | 2020-02-18 10:11 | ED.SOB ---
HPI - SOB/Dyspnea General Chief Complaint: Arrhythmia/Palpitations Stated Complaint: SVT Time Seen by Provider: 02/18/20 10:03 Source: patient, family and EMS History of Present Illness HPI Narrative: Patient brought here by ambulance. at bedside. Patient was on a walk with . Was emotionally upset. Had sudden onset of dyspnea nausea. Vomited once. The like she is going to pass out. Please see vital signs from EMS run sheet. The regional systolic was 51. Has improved now. Patient supine position. Patient was found to be in SVT. Protocol adenosine 6 mg/12 mg/12 mg given an no resolved. Cardizem 10 mg IV bolus given by EMS and no resolved. Patient states she feels much better. Never had chest pain or palpitations. No nausea at this time. Patient states within the last 5 years was seen here originally for the same but no medications are cardioversion given. Patient followed up 1 time with a training officer in [place] but never placed on any medications. Has been doing well. Denies any drugs or alcohol. No recent illness cough cold congestion fever chills MD Complaint: shortness of breath Related Data Home Medications Medication Instructions Recorded Confirmed estradiol 0.0375 mg/24 hr 1 patch TRANSDERMAL 2XW 05/11/19 02/18/20 semiweekly transdermal patch metformin 500 mg tablet 500 mg PO BID 05/11/19 02/18/20 progesterone micronized 100 mg 100 mg PO QAM 05/11/19 02/18/20 capsule thyroid (pork) [Amoret Thyroid] 75 mg PO QDAY@0600 02/18/20 02/18/20 Allergies Allergy/AdvReac Type Severity Reaction Status Date / Time No Known Drug Allergies Allergy Verified 05/11/19 12:00 Review of Systems Review of Systems Narrative: GENERAL: Denies chills, fatigue, malaise, fever, sweats. HEENT: Denies sinus pain, ear pain, sore throat, difficulty swallowing, dizziness. RESPIRATORY: Denies cough, wheezing, hemoptysis, sputum. Complains of dyspnea CARDIOVASCULAR: Denies chest pain, palpitations, orthopnea, edema, GASTROINTESTINAL: Denies nausea, vomiting, abdominal pain, diarrhea, constipation, melena. : Denies dysuria, frequency, incontinence, hematuria, urinary retention. MUSCULOSKELETAL: denies weakness, joint pain, or bony pain SKIN: Denies rash, skin lesions, or other NEUROLOGIC: Denies weakness, headache, numbness, change in speech, confusion, seizures, incoordination. PSYCHIATRIC: No concerning psychosocial issues. ROS Unobtainable: All systems reviewed & are unremarkable except as noted in HPI and below Patient History Medical History (Updated 02/18/20 @ 23:31 by Ruthy Garsia DO) Diabetes (Acute) Hypertension (Acute) Hypothyroid (Acute) Plantar fasciitis (Acute) Surgical History Hx of appendectomy (Acute) Family History Mother Hypertension Diabetes mellitus Grandmother Stroke Grandfather Cancer Social History marital status: household members: spouse occupational status: previously employed Smoking Status: Never smoker alcohol intake: never substance use type: does not use Smoking Status: Never smoker Substance Use Type: does not use Exam Narrative Exam Narrative: GENERAL: patient appears stated age. Well-nourished, well-developed patient, in no distress, not toxic HEAD: Atraumatic. Normocephalic. EYES: Pupils equal round and reactive. Extraocular motions intact. No scleral icterus. No injection or drainage. ENT: Nose without bleeding, purulent drainage. Throat without erythema, tonsillar hypertrophy or exudate. Airway patent. NECK: Trachea midline. Non tender CARDIOVASCULAR: Regular rate and rhythm without murmurs, gallops, or rubs. Tachycardic RESPIRATORY: Clear to auscultation. Breath sounds equal bilaterally. No wheezes, rales, or rhonchi. GASTROINTESTINAL: Abdomen soft, non-tender, nondistended. EXTREMITIES: No edema or joint tenderness. BACK: Nontender without deformity or crepitance. No flank tenderness. NEURO: AOx3. SKIN: No rash or erythema of visible areas PSYCH: Not anxious, is cooperative Initial Vital Signs Initial Vital Signs: Vital Signs Pulse Rate 146 H 02/18/20 10:13 Respiratory Rate 22 02/18/20 10:13 Blood Pressure 119/85 02/18/20 10:13 Pulse Oximetry 96 02/18/20 10:13 Course Course Course Narrative: No cardioversion indicated at this time. Cardizem has controlled rate Decision to Admit Date: 02/18/20 Decision to Admit time: 11:51 Orders Ordered: Acetaminophen (Tylenol) 650 mg PO Q6HR PRN PRN Reason: Fever/Mild Pain (1-3) Al Hydrox/Mg Hydrox/Simethicone (Maalox Plus) 30 ml PO Q6HR PRN PRN Reason: Dyspepsia Apixaban (Eliquis) 5 mg PO BID [facility] Last Admin: 02/18/20 21:14 Dose: 5 mg Documented by: CHARLY Bisacodyl (Dulcolax) 10 mg KS DAILY PRN PRN Reason: Constipation Calcium Carbonate (Tums) 1,000 mg PO Q4HR PRN PRN Reason: Dyspepsia Magnesium Hydroxide (Milk Of Magnesia) 30 ml PO DAILY PRN PRN Reason: Constipation Metoprolol Succinate (Toprol Xl) 25 mg PO DAILY [facility] Last Admin: 02/18/20 21:14 Dose: 25 mg Documented by: CHARLY Naloxone HCl (Narcan) 0.2 mg IV Q2MIN PRN PRN Reason: Opiate Reversal Ondansetron HCl (Zofran) 4 mg IV Q8HR PRN PRN Reason: Nausea And Vomiting Promethazine HCl (Phenadoz) 12.5 mg KS Q6HR PRN PRN Reason: Nausea And Vomiting Thyroid (Amoret Thyroid) 75 mg PO 0600 VANDANA Discontinued Medications DILTIAZEM (Diltiazem 125 Mg/125 Ml-D5w) 125 mg in 125 mls @ 5 mls/hr IV TITRATE VANDANA; Protocol Last Titration: 02/18/20 17:29 Dose: 0 mg/hr, 0 mls/hr Documented by: Titration: 02/18/20 16:38 Dose: 2.5 mg/hr, 2.5 mls/hr Documented by: Titration: 02/18/20 15:42 Dose: 5 mg/hr, 5 mls/hr Documented by: Titration: 02/18/20 11:33 Dose: 7.5 mg/hr, 7.5 mls/hr Documented by: Titration: 02/18/20 11:19 Dose: 10 mg/hr, 10 mls/hr Documented by: Titration: 02/18/20 10:57 Dose: 7.5 mg/hr, 7.5 mls/hr Documented by: Admin: 02/18/20 10:25 Dose: 5 mg/hr, 5 mls/hr Documented by: GWEN Sodium Chloride (Normal Saline 0.9%) 1,000 mls @ 1,000 mls/hr IV BOLUS ONE Stop: 02/18/20 11:56 Last Infusion: 02/18/20 12:44 Dose: 0 mls/hr Documented by: Admin: 02/18/20 11:07 Dose: 1,000 mls/hr Documented by: GWEN Pantoprazole Sodium (Protonix) 40 mg IV NOW ONE Stop: 02/18/20 10:38 Reevaluation(s) Reevaluation #1: Heart rate 87, sinus rhythm Time: 11:52 Consultations Consultation #1: Spoke with cardiology dr davis... Patient will eventually need metoprolol 25 mg daily and Eliquis 5 mg twice a day. After discharging from hospital can follow up with his partner Dr. Chew Time: 13:32 Consultation #2: s/w dr garsia..will admit inpt Time: 14:03 Vital Signs Vital signs: Vital Signs - 8 hr 02/18/20 10:13 02/18/20 10:19 02/18/20 10:27 Pulse Rate 146 H 156 H 153 H Respiratory Rate 22 17 11 L Blood Pressure 119/85 112/71 Pulse Oximetry 96 97 98 02/18/20 10:30 02/18/20 10:45 02/18/20 11:00 Pulse Rate 156 H 152 H 144 H Respiratory Rate 12 13 13 Blood Pressure 108/66 91/60 104/68 Pulse Oximetry 97 100 99 02/18/20 11:15 02/18/20 11:30 02/18/20 11:45 Pulse Rate 82 86 Respiratory Rate 10 L 9 L 9 L Blood Pressure 108/72 126/74 127/75 Pulse Oximetry 100 99 98 02/18/20 12:00 02/18/20 12:15 02/18/20 12:30 Pulse Rate 89 88 88 Respiratory Rate 10 L 12 14 Blood Pressure 131/75 130/75 132/77 Pulse Oximetry 97 98 94 02/18/20 12:45 02/18/20 13:00 02/18/20 13:30 Pulse Rate 86 82 82 Respiratory Rate 14 16 17 Blood Pressure 133/79 129/77 Pulse Oximetry 96 97 95 MDM - SOB/Dyspnea Differential Diagnosis Differential diagnosis: Likely other (SVT/atrial flutter/atrial fibrillation) Lab Data Result diagrams: 02/18/20 09:35 02/19/20 04:41 Labs: Lab Results 02/18/20 02/18/20 02/18/20 Range/Units 09:35 09:35 09:35 WBC 10.7 (4.5-11.0) X10^3/uL RBC 4.63 (4.0-5.2) X10^6/uL Hgb 14.5 (12.0-16.0) g/dL Hct 42.0 (36-46) % MCV 90.7 (80-100) fL MCH 31.2 (26-34) PG MCHC 34.4 (30-36) % RDW 13.2 (11.6-14.8) % Plt Count 303 (150-400) X10^3/uL Neut % (Auto) 39.4 L (50-75) % Lymph % (Auto) 48.1 H (25-40) % Gaines % (Auto) 7.8 (3-14) % Eos % (Auto) 4.1 H (2-4) % Baso % (Auto) 0.6 (0-2) % Neut # (Auto) 4200 (5848-3286) /uL Lymph # (Auto) 5100 H (7551-6418) /uL Gaines # (Auto) 800 (0-900) /uL Eos # (Auto) 400 (0-450) /uL Baso # (Auto) 100 (0-100) /uL PT 9.5 L (10.1-12.7) SECONDS INR 0.8 L (0.9-1.3) D-Dimer < 200 (<230) ng/mL Sodium (137-145) mmol/L Potassium (3.4-5.1) mmol/L Chloride (98-107) mmol/L Carbon Dioxide (22-32) mmol/L BUN (7-17) mg/dL Creatinine (0.52-1.04) mg/dL Estimated GFR (>60) mL/min BUN/Creatinine Ratio (6-22) Glucose (70-100) mg/dL Calcium (8.4-10.2) mg/dL Total Bilirubin (0.2-1.3) mg/dL AST (14-36) IU/L ALT (<35) IU/L Alkaline Phosphatase (38-126) U/L Total Creatine Kinase (30-135) U/L CK-MB (CK-2) CK-MB (CK-2) Rel Index Troponin I (0.01-0.034) ng/mL Total Protein (6.3-8.2) g/dL Albumin (3.5-5.0) g/dL Globulin (1.7-4.1) g/dL Albumin/Globulin Ratio (1.0-2.8) Lipase (23-300) U/L TSH 2.43 (0.47-4.68) uIU/mL 08// Range/Units 10:40 WBC (4.5-11.0) X10^3/uL RBC (4.0-5.2) X10^6/uL Hgb (12.0-16.0) g/dL Hct (36-46) % MCV (80-100) fL MCH (26-34) PG MCHC (30-36) % RDW (11.6-14.8) % Plt Count (150-400) X10^3/uL Neut % (Auto) (50-75) % Lymph % (Auto) (25-40) % Gaines % (Auto) (3-14) % Eos % (Auto) (2-4) % Baso % (Auto) (0-2) % Neut # (Auto) (4367-4026) /uL Lymph # (Auto) (0675-3048) /uL Gaines # (Auto) (0-900) /uL Eos # (Auto) (0-450) /uL Baso # (Auto) (0-100) /uL PT (10.1-12.7) SECONDS INR (0.9-1.3) D-Dimer (<230) ng/mL Sodium 134 L (137-145) mmol/L Potassium 4.1 (3.4-5.1) mmol/L Chloride 105 (98-107) mmol/L Carbon Dioxide 20 L (22-32) mmol/L BUN 18 H (7-17) mg/dL Creatinine 0.47 L (0.52-1.04) mg/dL Estimated GFR > 60.0 (>60) mL/min BUN/Creatinine Ratio 38.3 H (6-22) Glucose 279 H (70-100) mg/dL Calcium 8.5 (8.4-10.2) mg/dL Total Bilirubin 0.6 (0.2-1.3) mg/dL AST 121 H (14-36) IU/L ALT 128 H (<35) IU/L Alkaline Phosphatase 106 (38-126) U/L Total Creatine Kinase 52 (30-135) U/L CK-MB (CK-2) TNP CK-MB (CK-2) Rel Index TNP Troponin I 0.015 (0.01-0.034) ng/mL Total Protein 6.9 (6.3-8.2) g/dL Albumin 3.9 (3.5-5.0) g/dL Globulin 3.0 (1.7-4.1) g/dL Albumin/Globulin Ratio 1.3 (1.0-2.8) Lipase 56 (23-300) U/L TSH (0.47-4.68) uIU/mL Imaging Data Chest x-ray: Radiologist's Impression: [address] [address] XRay Report Signed Patient: Johanna Morgan#: [id number] : 2Acct:[id number] Age/Sex: 59 / FDate of Service: 02/18/20 Loc: ED Accession Number: [id number] Procedure: XR chest 1V Ordering Provider: Jeramy Brooks MD PROCEDURE: XR CHEST 1V INDICATIONS: Dyspnea TECHNIQUE: One view of the chest was acquired. COMPARISON: [facility], CHEST 1 VIEW, 06/04/2013, 15:21. FINDINGS: Surgical changes and devices: None. Lungs and pleura: On this semiupright portable chest examination, no large pneumothorax or large pleural effusions are seen. No focal infiltrates are seen. Mediastinum: Mediastinal contours appear normal. Heart size is normal. Bones and chest wall: No suspicious bony lesions. Age-appropriate bony degenerative changes are seen. Mild dextroconvex scoliotic curvature is seen. Overlying soft tissues appear unremarkable. IMPRESSION: Portable chest within normal limits. Dictated by: Louie Berman M.D. on 02/18/2020 at 9:41 Approved by: Louie Berman M.D. on 02/18/2020 at 9:41 ECG Data Attestation: I personally reviewed and interpreted this ECG as follows: Interpretation: Atrial flutter/tachycardia/rate 147, no ST elevation. Repeat EKG 11:52 a.m.. Normal sinus rhythm rate [address] elevation depression. MDM Narrative Medical decision making narrative: Admit for rate control. Patient on Cardizem drip. Patient will need echocardiogram. New onset a flutter/AFib Discharge Plan Departure Patient Disposition: Admitted As Inpatient Clinical Impression: New onset atrial flutter Discharge Date/Time: 02/18/20 15:13 Referrals: Fabiola Alvares ND [Primary Care Provider] - Admit Date/Time: 02/18/20 14:02 Admit Provider: Ruthy Garsia
[2020-02-18 10:23] LABS: Add Manual Diff / Slide Review NO; Basophils Absolute Auto 100 /uL (0-100); Basophils Percent Auto 0.6 % (0-2); Eosinophils Absolute Auto 400 /uL (0-450); Eosinophils Percent Auto 4.1 % (2-4); Hemoglobin 14.5 g/dL (12.0-16.0); Lymphocytes Absolute Auto 5100 /uL (1100-4500); Lymphocytes Percent Auto 48.1 % (25-40); Mean Corpuscular HGB Conc 34.4 % (30-36); Mean Corpuscular Hemoglobin 31.2 PG (26-34); Mean Corpuscular Volume 90.7 fL (80-100); Monocytes Absolute Auto 800 /uL (0-900); Monocytes Percent Auto 7.8 % (3-14); Neutrophils Absolute Auto 4200 /uL (1500-7000); Neutrophils Percent Auto 39.4 % (50-75); Platelet Count 303 X10^3/uL (150-400); Red Blood Cell Count 4.63 X10^6/uL (4.0-5.2); Red Cell Distribution Width 13.2 % (11.6-14.8); White Blood Cell Count 10.7 X10^3/uL (4.5-11.0)
[2020-02-18 10:24] LABS: INR 0.8 (0.9-1.3); Prothrombin Time 9.5 SECONDS (10.1-12.7)
[2020-02-18] MEDS: DILTIAZEM 125 MG/125 ML PIGGYBACK IV (10:25)
[2020-02-18 10:56] LABS: D Dimer < 200 ng/mL (<230)
[2020-02-18 10:57] LABS: Alanine Aminotransferase 128 IU/L (<35); Albumin 3.9 g/dL (3.5-5.0); Albumin Globulin Ratio 1.3 (1.0-2.8); Alkaline Phosphatase 106 U/L (38-126); Aspartate Aminotransferase 121 IU/L (14-36); BUN Creatinine Ratio 38.3 (6-22); Bilirubin Total 0.6 mg/dL (0.2-1.3); Blood Urea Nitrogen 18 mg/dL (7-17); Calcium 8.5 mg/dL (8.4-10.2); Carbon Dioxide 20 mmol/L (22-32); Chloride 105 mmol/L (98-107); Creatine Kinase 52 U/L (30-135); Estimated Glomerular Filt Rate > 60.0 mL/min (>60); Glucose 279 mg/dL (70-100); HEMOLYSIS 36 (0-50); Lipase 56 U/L (23-300); Potassium 4.1 mmol/L (3.4-5.1); Sodium 134 mmol/L (137-145); Total Protein 6.9 g/dL (6.3-8.2)
[2020-02-18] MEDS: SODIUM CHLORIDE 0.9% 1,000 ML 1000 ML IV (11:07)
[2020-02-18 11:09] LABS: Troponin I 0.015 ng/mL (0.01-0.034)
[2020-02-18 11:28] LABS: Thyroid Stimulating Hormone 2.43 uIU/mL (0.47-4.68)
--- NOTE | 2020-02-18 15:11 | PC.NURSE ---
ditalazam cont to icu
[2020-02-18 15:39] LABS: Magnesium 1.9 mg/dL (1.6-2.3)
[2020-02-18 15:41] LABS: Hemoglobin A1C% w Est Avg Glu 7.8 % (4.0-6.0)
[2020-02-18 16:30] LABS: COVID19 -Nasal RAPID Negative (Negative)
--- NOTE | 2020-02-18 17:51 | DI.ECHO.S_ITS ---
[place] [facility] +---------+ : : [address] : : : : [id number] : : : : Phone: [phone] Echocardiogram Report + + :Name: SCOTT BOOKER Study Date: 02/19/2020 Height: 63 in : :[facility] Weight: 170 lb : : Gender: Female BSA: 1.8 m2 : :: 1960 Age: 59 yrs BP: 150/70 mmHg: :Reason For Study: Atrial flutter : :Ordering Physician: Chacha : :Hospitalist Performed By: Ericka Ramires : :Referring: MILY RUIZ : + + Interpretation Summary The left ventricle is normal in size. The ejection fraction is estimated to be 55-60%. Left ventricular global longitudinal strain average is 19.7%. MV E/A: 0.85 Med Peak E' Anival: 4.3 cm/sec E/E' med: 18.8 The right ventricle is normal in size and function. There is moderate tricuspid regurgitation.The right ventricular systolic pressure is estimated to be at least 38 mmHg based on an estimated right atrial pressure of 8 mm Hg. There is aortic root sclerosis/calcification. Mild atherosclerotic plaque(s) in the aortic arch. Procedure: A two-dimensional transthoracic echocardiogram with color flow and Doppler was performed. The study quality was technically good. The study quality was technically adequate. There is no prior echocardiogram noted for this patient. The heart rate ranged between 65-75 bpm during the study. The patient was in normal sinus rhythm during the exam. Left Ventricle: The left ventricle is normal in size. Proximal septal thickening is noted. There is no echo evidence for significant left ventricular outflow tract obstruction. There is no thrombus. The ejection fraction is estimated to be 55-60%. Left ventricular global longitudinal strain average is 19.7%. There are no focal wall motion abnormalities. MV E/A: 0.85 Med Peak E' Anival: 4.3 cm/sec E/E' med: 18.8. Right Ventricle: The right ventricle is normal in size and function. Atria: The left atrium is moderately dilated. The right atrium is mildly dilated. The interatrial septum is intact with no evidence for an atrial septal defect. There is no Doppler evidence for an interatrial shunt. Mitral Valve: There is mild to moderate mitral annular calcification. The mitral valve leaflets are mildly calcified. There is mild mitral regurgitation. Aortic Valve: The aortic valve is trileaflet. The aortic valve opens well. The aortic valve is mildly calcified. There is discrete nodular thickening of the non- coronary cusp. There is no aortic valve stenosis. There is trace aortic regurgitation. Tricuspid Valve: The tricuspid valve is normal. There is moderate tricuspid regurgitation. The right ventricular systolic pressure is estimated to be at least 38 mmHg based on an estimated right atrial pressure of 8 mm Hg. Pulmonic Valve: The pulmonic valve leaflets are thin and pliable; valve motion is normal. There is trace pulmonic regurgitation. Great Vessels: The aortic root is normal size. There is aortic root sclerosis/calcification. The dimensions of the ascending aorta are normal. The ascending aorta is at the upper limits of normal in size. Mild atherosclerotic plaque(s) in the aortic arch. The pulmonary artery is normal size. The IVC is dilated (diameter is greater than 2.1 cm) yet it collapses greater than 50% with a sniff. This suggests a right atrial pressure of 8 mm Hg. Pericardium/ Pleura There is no pericardial effusion. There is no pleural effusion. MMode/2D Measurements & Calculations LVIDd: 4.6 cm LVOT diam: 2.0 cm LVIDs: 3.5 cm Ao root diam: 2.7 cm FS: 25.4 % asc Aorta Diam: 3.4 cm EPSS: 0.84 cm Ao Arch Diam (Prox Trans): 2.5 cm IVSd: 1.00 cm LVPWd: 1.0 cm LV mercado. diameter/BSA (cm/m^2): 2.6 LV sys. diameter/BSA (cm/m^2): 1.9 LA A2 area: 21.9 cm2 RA long axis: 5.7 cm LA A4 area: 22.4 cm2 RA area: 20.9 cm2 LA length (vol): 5.7 cm RA vol: 65.1 ml LA vol: 73.0 ml RA : 36.1 ml/m2 LA vol index: 40.4 ml/m2 IVC diam: 2.2 cm RVD1 (basal): 3.4 cm TAPSE: 1.9 cm Doppler Measurements & Calculations Ao V2 max: 135.4 cm/sec LVOT Max Anival: 80.2 cm/sec Ao V2 mean: 92.3 cm/sec LV V1 max P.6 mmHg Ao max P.3 mmHg LV V1 VTI: 20.6 cm Ao mean P.9 mmHg TEGAN(I,D): 2.3 cm2 Ao V2 VTI: 28.4 cm TEGAN(V,D): 1.9 cm2 sev ratio: 0.72 TEGAN indexed to BSA (cm^2/m^2): 1.3 MV E max anival: 80.1 cm/sec TR max anival: 276.0 cm/sec MV A max anival: 94.1 cm/sec TR max P.5 mmHg MV E/A: 0.85 PA V2 max: 79.7 cm/sec Med Peak E' Anival: 4.3 cm/sec PA V2 mean: 50.0 cm/sec E/E' med: 18.8 PA mean P.2 mmHg Lat Peak E' Anival: 7.2 cm/sec PA pr(Accel): 48.2 mmHg E/E' lat: 11.1 E/e' average: 15.0 MV dec time: 0.25 sec SV(LVOT): 66.1 ml Reading Physician:11:28 AM
[2020-02-18] MEDS: APIXABAN 5 MG TABLET PO (21:14)
[2020-02-18] MEDS: METOPROLOL ER 25 MG TABLET PO (21:14)
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
[2020-02-19] VITALS (8 sets, daily range): BP systolic 150–174; BP diastolic 70–87; PULSE 69–82; RESP 15–18; TEMP 36.1–37.1; O2SAT 97–99
[2020-02-19 05:35] LABS: BUN Creatinine Ratio 27.5 (6-22); Blood Urea Nitrogen 14 mg/dL (7-17); Carbon Dioxide 23 mmol/L (22-32); Chloride 107 mmol/L (98-107); Estimated Glomerular Filt Rate > 60.0 mL/min (>60); Glucose 201 mg/dL (70-100); HEMOLYSIS 45 (0-50); Magnesium 2.2 mg/dL (1.6-2.3); Potassium 4.2 mmol/L (3.4-5.1); Sodium 136 mmol/L (137-145)
[2020-02-19] MEDS: THYROID, PORK 30 MG TABLET 75 MG PO (09:35)
[2020-02-19] MEDS: METOPROLOL ER 25 MG TABLET PO (09:35)
[2020-02-19] MEDS: APIXABAN 5 MG TABLET PO (09:36)
--- NOTE | 2020-02-19 11:25 | CM.DANOTE ---
DCP: Case received, EMR reviewed and met with patient. , Live, was also present as well. He had various questions during team rounds. Introduced self and role. Was able to obtain information from patient regarding her baseline activity level and health information. DCP assessment completed with information currently available. Patient is a 59 year old female who admitted yesterday afternoon to the care of the hospitalist team. PCP: Dr. Alvares. Payer: confirmed: [employer]. Patient came to the hospital via ambulance secondary to some heart palpations. Patient was diagnosed with SVT. Patient mentioned, she had these same symptoms about 3 years ago, and had followed a bisque kiln drawer at that time, and was released from their care. Met with patient in her room, , Live, was also in the room. Patient is alert and oriented, independent. Her primary care provider is in [place]. She is here for cardiac monitoring. had several questions regarding her cardiac issues, and Dr. Preston is to be going back to discuss. Patient has a son that is 40. P: DCP to continue to follow. Patient should be able to go home when she is medically cleared. Ute Newman RN/Shoe Treer
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
--- NOTE | 2020-02-19 12:51 | PC.NURSE ---
discharge to home with lengthy discussion about rx: eliquis and metoprolol- with both pt and spouse - answered all their questions and discharged to home
== END 2020-02-19 12:49 | disposition home or self-care (01) ==
LOC: ED 14:03 → AC 14:16 → ICU 02-19 11:43 → AC 02-19 12:57
PROVIDERS: Admitting Provider Internal Medicine; Emergency Provider Emergency Medicine; PCP Naturopath; Referring Provider Emergency Medicine; Visit Provider Internal Medicine
DX: I48.92 Unspecified atrial flutter (principal); R00.2 Palpitations; E11.9 Type 2 diabetes mellitus without complications; E03.9 Hypothyroidism, unspecified; I10 Essential (primary) hypertension; Z79.84 Long term (current) use of oral hypoglycemic drugs; Z11.59 Encounter for screening for other viral diseases
CPT/HCPCS: 36415; 71045; 80048; 80053; 82550; 82962; 83036; 83690; 83735; 84443; 84484; 85025; 85379; 85610; 87635; 87797; 93005; 93306; 96365; 96366; 99284; G0378

== ENCOUNTER → 2020-03-14 07:11 | Outpatient (CLI) | payer OTHER, SELFPAY ==
[2020-02-18 15:36] VITALS: BMI 30.1
[2020-03-14 08:56] LABS: Hemoglobin A1C% w Est Avg Glu 8.4 % (4.0-6.0)
[2020-03-14 09:04] LABS: Creatinine Urine Random 95.4 mg/dL
[2020-03-14 09:05] LABS: Alanine Aminotransferase 40 IU/L (<35); Albumin 4.3 g/dL (3.5-5.0); Albumin Globulin Ratio 1.4 (1.0-2.8); Alkaline Phosphatase 74 U/L (38-126); Aspartate Aminotransferase 30 IU/L (14-36); BUN Creatinine Ratio 27.6 (6-22); Bilirubin Total 0.5 mg/dL (0.2-1.3); Blood Urea Nitrogen 16 mg/dL (7-17); Calcium 9.3 mg/dL (8.4-10.2); Carbon Dioxide 26 mmol/L (22-32); Chloride 102 mmol/L (98-107); Cholesterol 226 mg/dL (140-199); Estimated Glomerular Filt Rate > 60.0 mL/min (>60); Glucose 203 mg/dL (70-100); HDL Cholesterol 39 mg/dL (40-60); HEMOLYSIS < 15 (0-50); LDL Cholesterol Calculated 111 mg/dL (<100); Potassium 4.5 mmol/L (3.4-5.1); Sodium 137 mmol/L (137-145); Total Protein 7.3 g/dL (6.3-8.2); Triglycerides 379 mg/dL (35-150)
[2020-03-14 09:07] LABS: Microalbumi Creatinin Ratio Ur 9.4 ug/mg CR (<30); Microalbumin Urine Random 0.9 mg/dL (0-1.6)
[2020-03-14 09:10] LABS: C-Reactive Protein Quant < 0.5 mg/dL (<1.0)
== END ==
PROVIDERS: PCP Naturopath; Referring Provider Naturopath; Visit Provider Naturopath
DX: E11.9 Type 2 diabetes mellitus without complications (principal); E78.2 Mixed hyperlipidemia; I10 Essential (primary) hypertension
CPT/HCPCS: 36415; 80053; 80061; 82043; 82570; 83036; 86140

== ENCOUNTER → 2020-04-22 13:48 | Outpatient (CLI) | payer OTHER, SELFPAY ==
[2020-02-18 15:36] VITALS: BMI 30.1
--- NOTE | 2020-04-22 15:23 | DIET.PN ---
DIABETES Nutrition Initial Assessment:? ASSESS:?? Mrs. Morgan is a 56 yof referred for type 2 diabetes. She has had pre-diabetes for many years, but admits she did not make any lifestyle changes until recently. Since Sept lab results, she has been working on limiting starches and snacking. She has suffered from plantar fasciitis for many years which has limited her mobility. She recently purchased a bike and has been riding after dinner. LABS: Per pt report:? A1c: 8.4 FB ? MEDS:?? metformin 1000mg ? DIET: Per 24-hour recall:? B: egg w/ cheese, spinach mushroom in wheat tortilla L: veggies w/ dip, cottage cheese w/ berries or banana D: chicken, brown rice, veggies ? Weight: 164.5 ? Exercise:? limited mobility due to plantar fasciitis NUTRITION DX 1. Altered Nutrition related labs related to impaired glucose metabolism, lack of previous exposure to accurate nutrition information as evidenced by pt report, dx of diabetes, previous diet high in refined carbohydrates.? INTERVENTION(s): 1. Discussed pathophysiology of diabetes. Reviewed A1c and its correlation to blood glucose numbers. Discussed recommended BG ranges. 2. Discussed importance of self-monitoring, how often, and when to check. Provided demonstration on use of glucometer. 3. Reviewed hyper/hypoglycemia and treatment. 4. Reviewed safe disposal of equipment (strip/lancets/insulin needles). 5. Discussed impact of nutrition/diet on blood sugar control.? Discussed fed versus non-fed state.?? 6. Discussed the effect of carbohydrates/protein/fat on blood sugar control.? Stressed importance of consistent carbohydrate intake at each meal and provided instructions for recommended servings/portions of carbohydrates/protein per meal. Provided pt with educational material. 7. Reviewed carbohydrate counting and measuring carbohydrate content via serving sizes and reading nutrition labels.? Provided handouts.?? 8. Discussed the difference between simple versus complex carbohydrates and the effect of fiber on blood sugar control.? Discussed various methods to increase fiber content in diet. 9. Stressed importance of meal timing and not going >4-5 hours between meals. Encouraged adding protein to each meal to support glucose control. Provided list of protein foods. Discussed best protein options for heart health and to alleviate hunger. Patient agreeable. 10. Discussed healthy weight loss through diet and exercise to increase lean muscle mass.? Pt agreeable to walking daily. MONITOR/EVALUATE: Anticipate good compliance.? Nutrition follow up schedule for 1 mo to review BG, weight, food record and discuss protein/fat.
== END ==
PROVIDERS: PCP Naturopath; Referring Provider Naturopath; Visit Provider Naturopath
DX: E11.9 Type 2 diabetes mellitus without complications (principal); M72.2 Plantar fascial fibromatosis; Z79.84 Long term (current) use of oral hypoglycemic drugs; Z71.3 Dietary counseling and surveillance
CPT/HCPCS: 97802

== ENCOUNTER → 2020-05-16 07:05 | Outpatient (CLI) | payer OTHER, SELFPAY ==
[2020-02-18 15:36] VITALS: BMI 30.1
[2020-05-16 09:09] LABS: Free T3, Triiodothyronine Free 3.07 pg/mL (2.77-5.27); Free T4, Direct Thyroxine 0.99 ng/dL (0.78-2.19)
[2020-05-16 09:22] LABS: Thyroid Stimulating Hormone 2.12 uIU/mL (0.47-4.68)
== END ==
PROVIDERS: PCP Naturopath; Referring Provider Naturopath; Visit Provider Naturopath
DX: E05.90 Thyrotoxicosis, unspecified without thyrotoxic crisis or storm (principal)
CPT/HCPCS: 36415; 84439; 84443; 84481

== ENCOUNTER → 2020-09-01 07:47 | Outpatient (CLI) | payer OTHER, SELFPAY ==
[2020-02-18 15:36] VITALS: BMI 30.1
[2020-09-01 08:35] LABS: Hemoglobin A1C% w Est Avg Glu 8.3 % (4.0-6.0)
[2020-09-01 08:40] LABS: Alanine Aminotransferase 26 IU/L (<35); Albumin 4.2 g/dL (3.5-5.0); Albumin Globulin Ratio 1.4 (1.0-2.8); Alkaline Phosphatase 77 U/L (38-126); Aspartate Aminotransferase 25 IU/L (14-36); BUN Creatinine Ratio 46.3 (6-22); Bilirubin Total 0.4 mg/dL (0.2-1.3); Blood Urea Nitrogen 19 mg/dL (7-17); Calcium 8.9 mg/dL (8.4-10.2); Carbon Dioxide 28 mmol/L (22-32); Chloride 104 mmol/L (98-107); Cholesterol 121 mg/dL (140-199); Estimated Glomerular Filt Rate > 60.0 mL/min (>60); Globulin 2.9 g/dL (1.7-4.1); Glucose 210 mg/dL (70-100); HDL Cholesterol 41 mg/dL (40-60); HEMOLYSIS 26 (0-50); LDL Cholesterol Calculated 32 mg/dL (<100); Potassium 4.4 mmol/L (3.4-5.1); Sodium 137 mmol/L (137-145); Total Protein 7.1 g/dL (6.3-8.2); Triglycerides 239 mg/dL (35-150)
== END ==
PROVIDERS: PCP Naturopath; Referring Provider Nuclear Medicine Nuclear Cardiology; Visit Provider Naturopath
DX: I70.0 Atherosclerosis of aorta (principal); I10 Essential (primary) hypertension; E11.9 Type 2 diabetes mellitus without complications; E78.2 Mixed hyperlipidemia
CPT/HCPCS: 36415; 80053; 80061; 83036

== ENCOUNTER → 2020-10-23 06:51 | Outpatient (CLI) | payer OTHER, SELFPAY ==
[2020-02-18 15:36] VITALS: BMI 30.1
[2020-10-23 08:42] LABS: BUN Creatinine Ratio 35.7 (6-22); Blood Urea Nitrogen 15 mg/dL (7-17); Carbon Dioxide 27 mmol/L (22-32); Chloride 105 mmol/L (98-107); Estimated Glomerular Filt Rate > 60.0 mL/min (>60); HEMOLYSIS 42 (0-50); Potassium 4.4 mmol/L (3.4-5.1); Sodium 138 mmol/L (137-145)
== END ==
PROVIDERS: PCP Naturopath; Referring Provider Nuclear Medicine Nuclear Cardiology; Visit Provider Nuclear Medicine Nuclear Cardiology
DX: I10 Essential (primary) hypertension (principal)
CPT/HCPCS: 36415; 80051; 82565; 84520

== ENCOUNTER → 2020-11-19 08:27 | Outpatient (CLI) | payer OTHER, SELFPAY ==
[2020-02-18 15:36] VITALS: BMI 30.1
--- NOTE | 2020-11-19 | DI.MG.S_ITS ---
BILATERAL DIGITAL SCREENING MAMMOGRAM 3D/2D WITH CAD: 11/19/2020 CLINICAL: Routine screening. Comparison is made to exams dated: 09/10/2019 mammogram, 07/26/2018 mammogram, 06/30/2017 mammogram - [facility], 04/01/2016 mammogram - [facility] in [place], and 11/21/2014 mammogram - [facility]. There are scattered fibroglandular elements in both breasts. Current study was also evaluated with a Computer Aided Detection (CAD) system. There are benign calcifications in the left breast. There also is a biopsy clip in the left breast. No significant masses, calcifications, or other findings are seen in either breast. There has been no significant interval change. IMPRESSION: BENIGN There is no mammographic evidence of malignancy. A 1 year screening mammogram is recommended. This exam was interpreted at Station ID: [id number]. NOTE: For mammograms, a report in lay terms will be sent to the patient. Approximately 15% of breast malignancies will not be visualized mammographically. In the management of a palpable breast mass, a negative mammogram must not discourage biopsy of a clinically suspicious lesion. Electronically Signed By: Anders tom/jen:11/19/2020 10:59:07 copy to: Fabiola Alvares MD, Fabiola Alvares MD, ph: [phone] letter sent: Normal Exam ACR BI-RADS Category 2: Benign Finding(s) 3342F
== END ==
PROVIDERS: PCP Naturopath; Referring Provider Specialist; Visit Provider Specialist
DX: Z12.31 Encounter for screening mammogram for malignant neoplasm of breast (principal)
CPT/HCPCS: 77063; 77067

== ENCOUNTER → 2021-03-10 07:05 | Outpatient (CLI) | payer OTHER, SELFPAY ==
[2020-02-18 15:36] VITALS: BMI 30.1
[2021-03-10 09:53] LABS: Hemoglobin A1C% w Est Avg Glu 6.9 % (4.0-6.0)
[2021-03-10 09:59] LABS: Alanine Aminotransferase 35 IU/L (<35); Albumin 4.5 g/dL (3.5-5.0); Albumin Globulin Ratio 1.5 (1.0-2.8); Alkaline Phosphatase 78 U/L (38-126); Aspartate Aminotransferase 31 IU/L (14-36); BUN Creatinine Ratio 34.1 (6-22); Bilirubin Total 0.5 mg/dL (0.2-1.3); Blood Urea Nitrogen 15 mg/dL (7-17); Calcium 9.2 mg/dL (8.4-10.2); Carbon Dioxide 26 mmol/L (22-32); Chloride 105 mmol/L (98-107); Cholesterol 145 mg/dL (140-199); Estimated Glomerular Filt Rate > 60.0 mL/min (>60); Glucose 154 mg/dL (70-100); HDL Cholesterol 42 mg/dL (40-60); HEMOLYSIS 15 (0-50); LDL Cholesterol Calculated 26 mg/dL (<100); Potassium 4.3 mmol/L (3.4-5.1); Sodium 139 mmol/L (137-145); Total Protein 7.5 g/dL (6.3-8.2); Triglycerides 383 mg/dL (35-150)
[2021-03-10 15:31] LABS: Creatinine Urine Random 184.2 mg/dL
[2021-03-10 15:36] LABS: Microalbumi Creatinin Ratio Ur 9.7 ug/mg CR (<30); Microalbumin Urine Random 1.8 mg/dL (0-1.6)
== END ==
PROVIDERS: PCP Naturopath; Referring Provider Naturopath; Visit Provider Naturopath
DX: I10 Essential (primary) hypertension (principal); E11.9 Type 2 diabetes mellitus without complications
CPT/HCPCS: 36415; 80053; 80061; 82043; 82570; 83036

== ENCOUNTER → 2021-06-12 07:04 | Outpatient (CLI) | payer OTHER, SELFPAY ==
[2020-02-18 15:36] VITALS: BMI 30.1
[2021-06-12 08:11] LABS: Hemoglobin A1C% w Est Avg Glu 7.7 % (4.0-6.0)
[2021-06-12 08:29] LABS: Triglycerides 221 mg/dL (35-150)
[2021-06-12 08:40] LABS: Free T3, Triiodothyronine Free 3.24 pg/mL (2.77-5.27); Free T4, Direct Thyroxine 0.82 ng/dL (0.78-2.19)
[2021-06-12 08:54] LABS: Thyroid Stimulating Hormone 0.499 uIU/mL (0.47-4.68)
== END ==
PROVIDERS: PCP Naturopath; Referring Provider Naturopath; Visit Provider Naturopath
DX: E03.9 Hypothyroidism, unspecified (principal)
CPT/HCPCS: 36415; 83036; 84439; 84443; 84478; 84481

== ENCOUNTER → 2021-12-03 14:36 | Outpatient (CLI) | payer OTHER, SELFPAY ==
[2020-02-18 15:36] VITALS: BMI 30.1
--- NOTE | 2021-12-03 | DI.MG.S_ITS ---
BILATERAL DIGITAL SCREENING MAMMOGRAM 3D/2D WITH CAD: 12/03/2021 CLINICAL: Routine screening. Comparison is made to exams dated: 09/10/2019 mammogram, 07/26/2018 mammogram, 06/30/2017 mammogram - [facility], 04/01/2016 mammogram - [facility] in [place], and 11/19/2020 mammogram - [facility]. There are scattered fibroglandular elements in both breasts. Current study was also evaluated with a Computer Aided Detection (CAD) system. There are benign calcifications in the left breast. There also is a biopsy clip in the left breast. No significant masses, calcifications, or other findings are seen in either breast. There has been no significant interval change. IMPRESSION: BENIGN There is no mammographic evidence of malignancy. A 1 year screening mammogram is recommended. This exam was interpreted at Station ID: [id number]. NOTE: For mammograms, a report in lay terms will be sent to the patient. Approximately 15% of breast malignancies will not be visualized mammographically. In the management of a palpable breast mass, a negative mammogram must not discourage biopsy of a clinically suspicious lesion. Electronically Signed By: Anders tom/jen:12/03/2021 15:12:41 copy to: Fabiola Alvares MD, Fabiola Alvares MD, ph: [phone] letter sent: Normal Exam ACR BI-RADS Category 2: Benign Finding(s) 3342F
== END ==
PROVIDERS: PCP Naturopath; Referring Provider Obstetrics & Gynecology; Visit Provider Obstetrics & Gynecology
DX: Z12.31 Encounter for screening mammogram for malignant neoplasm of breast (principal)
CPT/HCPCS: 77063; 77067

== ENCOUNTER → 2021-12-15 06:46 | Outpatient (CLI) | payer OTHER, SELFPAY ==
[2020-02-18 15:36] VITALS: BMI 30.1
[2021-12-15 08:07] LABS: Hemoglobin A1C% w Est Avg Glu 7.9 % (4.0-6.0)
== END ==
PROVIDERS: PCP Naturopath; Referring Provider Naturopath; Visit Provider Naturopath
DX: E11.9 Type 2 diabetes mellitus without complications (principal)
CPT/HCPCS: 36415; 83036